=== PATIENT | female | born 1940 | race Caucasian/White ===

== ENCOUNTER 2016-05-09 15:43 | Inpatient (IN) | payer OTHER ==
--- NOTE | 2016-05-09 16:16 | CPEKG ---
Heart Rate: 95 RR Interval: 632 QRSD Interval: 90 QT Interval: 376 QTC Interval: 473 QRS [place]: -47 T Wave [place]: 39 EKG Severity - ABNORMAL ECG - EKG Impression: ATRIAL FIBRILLATION, V-RATE 74-123 EKG Impression: LEFT ANTERIOR FASCICULAR BLOCK Electronically Signed By: Blaire Kelly 09-May-2016 21:12:02
[2016-05-09] MEDS ORDERED: ONDANSETRON 4 MG/2 ML VIAL ONE (16:17)
[2016-05-09] MEDS ORDERED: ONDANSETRON 4 MG/2 ML VIAL IVP ONE (16:18)
[2016-05-09] MEDS ORDERED: FAMOTIDINE 20 MG/NACL 50 ML IV ONE (17:13)
--- NOTE | 2016-05-09 17:19 | EDPHY ---
H & P Time Seen by Provider: 05/09/16 16:14 HPI/ROS: HPI Left-sided sciatica. Generalized weakness. 75-year-old female by private vehicle with her . This patient complains of worsening left-sided sciatica which she describes as a pain originating in her left upper buttock and wrapping around to the lateral aspect of her left thigh and anterior aspect of her distal thigh. She denies any pain below the knee. She has not had any bowel or bladder incontinence. No history of malignancy. No fever. She denies any loss of sensation or weakness in her lower extremities but does state that she has difficulty ambulating because of the pain. She denies back pain. She reports that she saw her primary care physician physician recruitment and outreach assistant Ish Flores on Thursday with complaint of sciatica. She was prescribed Flexeril. She reports that since Thursday evening she has had heartburn which she describes as a burning sensation in her chest. She thinks that this is attributed to her taking the Flexeril. She also reports that since she has had nausea with several episodes of vomiting and feels that she is dehydrated. She denies diarrhea. She denies any significant abdominal pain. ROS: Constitutional: No fever, no chills. As above. Eyes: No discharge. No changes in vision. ENT: No sore throat. No nasal congestion or rhinorrhea. Respiratory: No cough. No shortness of breath. Cardiac: No chest pain, no palpitations. Gastrointestinal: As above, no diarrhea. Genitourinary: No hematuria. No dysuria or increased frequency with urination. Musculoskeletal: No back pain. No neck pain. No myalgias or arthralgias. Skin: No rashes. Neurological: No headache. No focal weakness or altered sensation. Past medical history: Macular degeneration, atrial fibrillation, appendectomy, cholecystectomy, right shoulder surgery. She is on Coumadin. Social history: She is here with her . Nonsmoker. No alcohol. Physical Exam: General Appearance: Alert, no distress. Obese habitus. This patient is responding to questions appropriately and in full sentences. This patient appears well-hydrated and well-nourished. Eyes: Pupils equal and round no pallor or injection. No lid edema, erythema or injection. Respiratory: There are no retractions, lungs are clear to auscultation anteriorly with good air movement bilaterally. Cardiovascular: Irregular, irregular rhythm. No murmur. Gastrointestinal: Abdomen is soft and nontender, no masses, bowel sounds normal. No focal tenderness at McBurney's point. No Gomes sign. Neurological: Motor sensory function is grossly intact. Cranial nerves are normal. Gait is normal. Skin: Warm and dry, no rashes. Musculoskeletal: Neck is supple and nontender. No midline thoracic, lumbar, sacral tenderness on palpation. No tenderness over the bilateral sacroiliac joints. No soft tissue changes on gross inspection of the lower back. Negative same side and cross side straight leg raise test. She is neurologically intact in all myotomes in dermatomes of the bilateral lower extremities. She is vascularly intact in the bilateral lower extremities. Extremities are symmetrical. All joints range without pain or impingement. Psychiatric: No agitation. No depression. Database: EKG: EKG time is 4:14 p.m.: EKG shows an atrial fibrillation with ventricular rate 95. Left anterior fascicular block noted. Narrow complex atrial fibrillation. No ST, T-wave changes indicative of ischemic or injury pattern. Interpreted by me. Imaging: Chest x-ray PA and lateral; the cardiac mediastinal silhouette is unremarkable. No evidence of infiltrate or pneumothorax. No acute cardiopulmonary disease process noted. Interpreted by me. Procedures: Emergency department course: IV placed. She was placed on a column precaster. EKG was performed. She states that morphine has worked for her sciatica in the past. She was given 4 mg of IV morphine. She was started on IV normal saline with 1 L to be given over the next hour for dehydration. 6:30 p.m., patient re-evaluated. Her pain is well controlled at this time. Discussed results of her lab work in her mildly elevated troponin. I will admit her for serial troponins and further evaluation and management by the hospitalist service. The patient and her are in agreement with this plan. All of her questions were answered. 6:40 p.m., spoke with Dr. Dona Harris who is covering for Dr. Mcgowan. Patient 's presentation was discussed in detail. Patient accepted for admission. Patient admitted in stable condition to the the service of Dr. Mcgowan. Differential Diagnosis: The differential diagnosis on this patient includes but is not limited to sciatica, generalized weakness, dehydration. Atrial fibrillation with rapid ventricular response, acute coronary syndrome, pancreatitis, cholecystitis, epidural abscess, spinal cord compression syndrome, AAA unlikely. This represents a partial list of diagnoses considered. These considerations are based on history, physical exam, past history, reassessment and diagnostic testing. Smoking Status: Former smoker Constitutional: Initial Vital Signs Temperature (C) 36.6 C 05/09/16 15:52 Heart Rate 110 H 05/09/16 15:52 Respiratory Rate 20 05/09/16 15:52 Blood Pressure 121/93 H 05/09/16 15:52 O2 Sat (%) 96 05/09/16 15:52 O2 Delivery Mode Nasal Cannula O2 (L/minute) 2 Allergies/Adverse Reactions: No Known Allergies Allergy (Verified 05/09/16 15:51) Home Medications: Medication Instructions Recorded Aspirin [Aspirin 81mg (*)] 81 mg PO DAILY 07/15/11 Atorvastatin Calcium [Lipitor 20 20 mg PO HS 07/15/11 mg (*)] Multivitamins [Multivitamin (*)] 1 each PO DAILY 07/15/11 Warfarin Sodium [Coumadin 1MG (*)] 5 mg PO DAILY16 07/15/11 Beta-Carotene(A) W-C & E/Min 1 tab PO DAILY 07/16/11 [Ocuvite] Ergocalciferol [Vitamin D2 (*)] 50,000 unit PO MO 07/16/11 Propylene Glycol/Peg 400 [SYSTANE 2 drops EACHEYE DAILY PRN 07/16/11 0.3-0.4% EYE DROPS] Vitamin B Complex [Vitamin B 2 tab PO DAILY 07/16/11 Complex (OTC)] Ascorbic Acid [Vitamin C 250 mg 250 mg PO DAILY 07/18/15 (*)] Calcium Citrate W/Vit D [Citracal 315 mg PO TID 07/18/15 + D] Herbals/Supplements -Info Only 1 ea PO AD 07/18/15 Pyote-3 Fatty Acids [Fish Oil 1000 1,000 mg PO BIDMEAL 07/18/15 mg (*)] Propafenone HCl 225 mg PO TID 07/18/15 Acetaminophen [Tylenol 325mg (*)] 650 mg PO Q4 PRN #0 tab 07/19/15 Muscle Relaxant 05/09/16 Medical Decision Making - Data Points Laboratory Results: Laboratory Results 05/09/16 16:17 05/09/16 16:17 05/09/16 16:17 WBC 9.73 H 10^3/uL (3.80-9.50) RBC 4.77 10^6/uL (4.18-5.33) Hgb 14.8 g/dL (12.6-16.3) Hct 42.8 % (38.0-47.0) MCV 89.7 fL (81.5-99.8) MCH 31.0 pg (27.9-34.1) MCHC 34.6 g/dL (32.4-36.7) RDW 14.4 % (11.5-15.2) Plt Count 235 10^3/uL (150-400) MPV 10.5 fL (8.7-11.7) Neut % (Auto) 86.2 H % (39.3-74.2) Lymph % (Auto) 8.2 L % (15.0-45.0) [place] % (Auto) 5.2 % (4.5-13.0) Eos % (Auto) 0.0 L % (0.6-7.6) Baso % (Auto) 0.1 L % (0.3-1.7) Nucleat RBC Rel Count 0.0 % (0.0-0.2) Absolute Neuts (auto) 8.38 H 10^3/uL (1.70-6.50) Absolute Lymphs (auto) 0.80 L 10^3/uL (1.00-3.00) Absolute Monos (auto) 0.51 10^3/uL (0.30-0.80) Absolute Eos (auto) 0.00 L 10^3/uL (0.03-0.40) Absolute Basos (auto) 0.01 L 10^3/uL (0.02-0.10) Absolute Nucleated RBC 0.00 10^3/uL (0-0.01) Immature Gran % 0.3 % (0.0-1.1) Immature Gran # 0.03 10^3/uL (0.00-0.10) PT 18.9 H SEC (12.0-15.0) INR 1.58 H (0.83-1.16) APTT 30.9 SEC (23.0-38.0) Sodium 135 mEq/L (134-144) Potassium 3.9 mEq/L (3.5-5.2) Chloride 98 mEq/L (97-110) Carbon Dioxide 23 mEq/l (22-31) Anion Gap 14 mEq/L (8-16) BUN 18 mg/dL (7-23) Creatinine 0.8 mg/dL (0.6-1.0) Estimated GFR > 60 Glucose 121 H mg/dL (70-100) Calcium 10.0 mg/dL (8.5-10.4) Total Bilirubin 1.3 mg/dL (0.1-1.4) Conjugated Bilirubin 0.4 mg/dL (0.0-0.5) Unconjugated Bilirubin 0.9 mg/dL (0.0-1.1) AST 44 IU/L (14-46) ALT 41 IU/L (9-52) Alkaline Phosphatase 97 IU/L (38-126) Troponin I 0.046 H ng/mL (0-0.034) Total Protein 7.5 g/dL (6.3-8.2) Albumin 4.5 g/dL (3.5-5.0) Lipase 77.0 IU/L (23-300) Medications Given: Discontinued Medications Famotidine/Sodium Chloride (Pepcid 20 Mg (Premix)) 50 mls @ 200 mls/hr IV EDNOW ONE Stop: 05/09/16 17:27 Last Admin: 05/09/16 17:44 Dose: 50 mls Morphine Sulfate (Morphine) 4 mg IVP EDNOW ONE Stop: 05/09/16 16:20 Last Admin: 05/09/16 16:25 Dose: 4 mg Ondansetron HCl (Zofran) 4 mg IVP EDNOW ONE Stop: 05/09/16 16:19 Last Admin: 05/09/16 16:23 Dose: 4 mg Departure - Departure Disposition: [facility] Acute Clinical Impression: Sciatica, Dehydration, Vomiting, Chest discomfort, Elevated troponin Referrals: Ish Flores PA [Primary Care Provider] - As per Instructions
[2016-05-09 17:22] LABS: % IMMATURE GRANULYOCYTES 0.3 % (0.0-1.1); ABSOLUTE IMMATURE GRANULOCYTES 0.03 10^3/uL (0.00-0.10); ADD DIFF? NO; ADD MORPH? NO; ADD SCAN? NO; ATYPICAL LYMPHOCYTE FLAG 0 (0-99); FRAGMENT RBC FLAG 0 (0-99); HEMATOCRIT 42.8 % (38.0-47.0); HEMOGLOBIN 14.8 g/dL (12.6-16.3); LEFT SHIFT FLG 0 (0-99); LIPEMIA HEMOLYSIS FLAG 90 (0-99); MEAN CELL HEMOGLOBIN CONCENTR. 34.6 g/dL (32.4-36.7); MEAN CELL VOLUME 89.7 fL (81.5-99.8); MEAN PLATELET VOLUME 10.5 fL (8.7-11.7); PLATELET CLUMPS FLAG 10 (0-99); PLATELET COUNT 235 10^3/uL (150-400); RED BLOOD CELL COUNT 4.77 10^6/uL (4.18-5.33); RED CELL DISTRIBUTION WIDTH 14.4 % (11.5-15.2)
[2016-05-09 17:28] LABS: ALANINE AMINOTRANSFERASE 41 IU/L (9-52); ALBUMIN 4.5 g/dL (3.5-5.0); ALKALINE PHOSPHATASE 97 IU/L (38-126); ANION GAP 14 mEq/L (8-16); ASPARTATE AMINOTRANSFERASE 44 IU/L (14-46); BILIRUBIN,TOTAL 1.3 mg/dL (0.1-1.4); BILIRUBIN-CONJUGATED 0.4 mg/dL (0.0-0.5); BILIRUBIN-UNCONJUGATED 0.9 mg/dL (0.0-1.1); CARBON DIOXIDE 23 mEq/l (22-31); CHLORIDE 98 mEq/L (97-110); CREATININE 0.8 mg/dL (0.6-1.0); GLOMERULAR FILTRATION RATE > 60; GLUCOSE 121 mg/dL (70-100); POTASSIUM 3.9 mEq/L (3.5-5.2); SODIUM 135 mEq/L (134-144); TOTAL PROTEIN 7.5 g/dL (6.3-8.2)
[2016-05-09 17:31] LABS: INR 1.58 (0.83-1.16); PROTIME(PATIENT) 18.9 SEC (12.0-15.0)
[2016-05-09 17:39] LABS: TROPONIN I 0.046 ng/mL (0-0.034)
[2016-05-09 17:40] LABS: APTT 30.9 SEC (23.0-38.0)
--- NOTE | 2016-05-09 19:05 | DX ---
Chest, One View Portable at 1900 hours History: Chest pain. Comparison: June 2007 Findings: Cardiac silhouette is normal in size. Hyperinflation lungs. Tortuous thoracic aorta. Bilat eral peribronchial thickening. No pneumonia, congestive heart failure, pleural effusion, or pneumotho rax. Impression: 1. COPD. 2. Chronic bronchitis. 3. Consider additional CT chest imaging.
[2016-05-09] MEDS ORDERED: PEG EACHEYE PRN (21:36)
[2016-05-09] MEDS ORDERED: PROPYLENE GLYCOL EACHEYE PRN (21:36)
[2016-05-09] MEDS ORDERED: ONDANSETRON DISINTEGRATING 4 MG TAB PO PRN (21:43)
[2016-05-09] MEDS ORDERED: BISACODYL 10 MG SUPP PR PRN (21:43)
[2016-05-09] MEDS ORDERED: MAGNESIUM HYDROXIDE 30 ML UDCUP PO PRN (21:43)
[2016-05-09] MEDS ORDERED: POLYETHYLENE GLYCOL 3350 17 GM PKT PO PRN (21:43)
[2016-05-09] MEDS ORDERED: LACTULOSE 20 GM/30 ML UDCUP PO PRN (21:43)
[2016-05-09] MEDS ORDERED: ONDANSETRON 4 MG/2 ML VIAL IVP PRN (21:43)
[2016-05-09] MEDS ORDERED: TEARS/DEXTRAN 70/HYPROMELLOSE 15 ML OPHT.BTL EACHEYE PRN (21:50)
--- NOTE | 2016-05-09 21:57 | SOAPPROG ---
SOAP Progress Note Assessment/Plan: Assessment: Plan: 05/09/16 22:04 1. Sciatica: no clear trigger, though she does report hx arthritis in her low back. Pain is somewhat better tonight. Will continue pain management with celebrex, tylenol, and prn morphine. Will have PT/OT see pt. Consider additional imaging if minimal improvement. 2. Atrial fibrillation: rate controlled, on coumadin. PT slightly subtherapeutic , likely related to missing dose recently. 3. increased troponin: indeterminant elevation of doubtful significance. Mild CAD based on last heart scan in 02/12. Agatston score 65.41. This is actually down by 30% in last year. Will f/u with troponin in morning. 4. elevated blood sugar: will check A1c 5. states she was recently started on duloxetine for depression, and that she is to be taking 30mg bid, so will dose 60mg daily. 6. DVT prophylaxis: currently on coumadin, so nothing further added. 7. Hyperlipidemia: on atorvastatin, so will continue. Subjective: 75 yo woman with hx atrial fibrillation, on coumadin, hadn't been feeling well since 05/07/15 due to L sided sciatic-type pain. Spoke to her PCP, JASON Montejo, and was advised to increase her Celebrex 100mg to bid, and begin Flexeril 5mg TID. She took two Flexeril that day and developed significant heartburn, which she attributed to the Flexeril. She also felt nauseated and vomited several times. Her symptoms persisted and she was afraid to eat. She has spent most of the last 2 days in her recliner due to pain. She is fairly comfortable sitting, but not able to stand or walk without significant pain. Today she felt worse, with continuing nausea, mild emesis, pain, and generalized weakness. She felt she was dehydrated, so was advised to come to the ED for further evaluation. In the ED, her CXR was showed COPD, but no CHF, pneumonia, effusion. EKG showed atrial fibrillation with a rate of 95. WBC was mildly elevated, but CBC otherwise normal. CMP normal except for glucose 121. Troponin indeterminate at 0.046. PT/INR 18.9/1.58. She was hydrated and given morphine 4mg IVP, and admitted for further evaluation due to ongoing pain and difficulty with ambulation. Currently, she is feeling much better, though continues to have some pain if not sitting. Objective: Vital Signs Temp Pulse Resp BP Pulse Ox 36.6 C 104 H 18 114/75 94 05/09/16 21:17 05/09/16 21:17 05/09/16 21:17 05/09/16 21:17 05/09/16 21:17 PT 18.9 SEC (12.0-15.0) H 05/09/16 16:17 INR 1.58 (0.83-1.16) H 05/09/16 16:17 General: WDWN woman, obese, NAD, pleasant, alert HEENT: PERRL, EOMI Neck: supple, no masses, adenopathy. No thyromegaly, tenderness. No carotid bruits. Lungs: clear bilaterally Cardiovascular: irregularly, irregular, rate controlled. Heart sounds distant. No murmur noted. Abdomen: normal bowel sounds, soft, NT, non-distended. No organomegaly, masses noted. Back: NT over spine Neurologic: moving all extremities. BLE strength, muscle bulk, tone normal. Sensation normal to LT. Ankle jerks 1+ bilaterally. Psychiatric: alert, pleasant, conversant. Normal cognition, affect. ICD10 Worksheet Patient Problems: Problems Problem Status Diagnosed Chest discomfort Acute Dehydration Acute Elevated troponin Acute Sciatica Acute Vomiting Acute Osteoarthritis Acute
[2016-05-09] MEDS ORDERED: Herbals/Supplements -Info Only PO SCH (22:00)
[2016-05-09] MEDS ORDERED: WARFARIN SODIUM 1 MG TAB PO SCH (22:00)
[2016-05-09] MEDS ORDERED: PROPAFENONE HCL 225 MG PO SCH (22:00)
[2016-05-09] MEDS: PROPAFENONE HCL 150 MG TAB PO SCH (22:33)
[2016-05-09] MEDS: CALCIUM CARB W/VIT D 500 MG TAB PO SCH (22:34)
[2016-05-09] MEDS: ACETAMINOPHEN 325 MG TAB PO SCH (22:34)
--- NOTE | 2016-05-09 23:20 | GHP ---
[f rep st] HISTORY AND PHYSICAL DATE OF ADMISSION: 05/09/2016 HISTORY OF PRESENT ILLNESS: The patient is a 75-year-old woman with a history of atrial fibrillation currently on Coumadin who has not been feeling well since Saturday, May 07, 2016, due to left-sided sciatic type pain. On that day, she spoke to her PCP, JASON Montejo, and was advised to increase her Celebrex 100 mg to b.i.d. and to begin Flexeril 5 mg t.i.d. She took 2 Flexeril that day and developed heartburn which she attributed to the Flexeril. She also felt nauseated and vomited several times. Her symptoms persisted, and she was afraid to eat. She has spent most of the last 2 days in her recliner due to pain. She is fairly comfortable sitting but is not able to stand or walk without significant pain. Today she felt worse with continuing nausea, mild emesis, pain, and generalized weakness. She felt she was dehydrated so was advised to come to the ED for further evaluation. In the ED, her chest x-ray showed COPD but not significant CHF, pneumonia or effusion. EKG showed atrial fibrillation with a rate of 95. White blood cell count was mildly elevated, but CBC was otherwise normal. CMP was normal except for a glucose of 121. Troponin was indeterminate at 0.046. PT/INR 18.9/1.58. She was hydrated and given morphine 4 mg IV push and admitted for further evaluation due to ongoing pain and difficulty with ambulation. Currently, she is feeling much better though she does continue to have some pain if she is not sitting. PAST MEDICAL HISTORY: Atrial fibrillation, GERD, hematuria, macular degeneration, meralgia paresthetica, pneumonia, primary hyperparathyroidism, sciatica, tinnitus, vertigo, thyroid nodule, hyperlipidemia, hypertension, hypoxia. MEDICATIONS: Vitamin D 50,000 international units once weekly, duloxetine 30 mg b.i.d., atorvastatin 20 mg daily, Coumadin 5 mg daily, Rythmol 225 mg t.i.d. , celecoxib 100 mg daily, Omeprazole 20 mg b.i.d. p.r.n., Flonase p.r.n., aspirin 81 mg daily, calcium 600 mg t.i.d., omega 3 fatty acids 1200 mg 4 daily. ALLERGIES: Ceftin, tetanus. PAST SURGICAL HISTORY: Appendectomy 2011, fistula, cholecystectomy 1996. FAMILY HISTORY: Her father at 88 from lung cancer and asbestosis. Her mother at 89. She had heart failure, diabetes, coronary artery disease, and thyroid disease. SOCIAL HISTORY: She is . She is a nondrinker. She has 2 children. She is a former smoker having quit in 1986. REVIEW OF SYSTEMS: CONSTITUTIONAL: No fever. She reports having had chills today and feeling generalized weakness. HEENT: No eye symptoms. No rhinitis. No sore throat. RESPIRATORY: No cough or shortness of breath. CARDIOVASCULAR: No chest pain or pressure. No palpitations. Heart rate somewhat variable. GI: Nausea, vomiting, and reflux as noted above. No lower abdominal pain. No diarrhea or constipation. : No hematuria, dysuria, no increased urinary frequency. MUSCULOSKELETAL: Sciatica, as noted. Decreased range of motion in right shoulder. NEUROLOGIC: No focal weakness. She reports slight decreased sensation to light touch over her left knee. No incontinence. No headache. PHYSICAL EXAMINATION: VITAL SIGNS: Temperature 36.6, blood pressure 114/75, heart rate 104, respiratory rate 18, O2 saturation 94% on room air. GENERAL: She is a well-developed, well-nourished woman, obese, pleasant, alert. In no acute distress. HEENT: Pupils are equal, round, and reactive to light. Extraocular movements are intact. NECK: Supple without masses or adenopathy. No thyromegaly or tenderness. No carotid bruits. LUNGS: Clear bilaterally. CARDIOVASCULAR: Irregularly irregular rhythm. Rate is controlled. Heart sound are distant. No murmur noted. ABDOMEN: Obese with normal bowel sounds, soft and nontender, nondistended. No organomegaly or masses noted. BACK: Nontender over spine. NEUROLOGIC: Moving all extremities, bilateral lower extremity strength, muscle, bulk and tone are normal. Sensation is normal to light touch in both lower extremities. Ankle jerks 1+ bilaterally. PSYCHIATRIC : She is alert, pleasant, conversant, normal cognition and affect. ASSESSMENT AND PLAN: 1. Sciatica. No clear trigger though she does report a history of arthritis in her low back in the past, and she has had right-sided sciatica in the past. Her pain is somewhat better tonight. We will continue with pain management with Celebrex, Tylenol and p.r.n. morphine. We will have PT and OT see patient and consider additional imaging if minimal improvement. 2. Atrial fibrillation. Rate is controlled. She is on Coumadin. PT is slightly subtherapeutic, likely related to missing a dose recently. 3. Increased troponin, indeterminate elevation of doubtful significance. Mild coronary artery disease based on last heart scan in 01/2016. Agatston score at that time 65.41. This is actually down by 30% in the last year. We will follow up with troponin in the morning. 4. Elevated blood sugar. We will check hemoglobin A1c. 5. States that she was recently started on Duloxetine for depression that she is taking 30 mg b.i.d., so we will dose 60 mg daily. 6. Deep vein thrombosis prophylaxis: Currently on Coumadin, so nothing further added. 7. Hyperlipidemia on atorvastatin, so we will continue. /[id number]/MODL MTDD
[2016-05-09] MEDS: WARFARIN SODIUM 5 MG TAB PO SCH (23:36)
[2016-05-10 05:28] LABS: % IMMATURE GRANULYOCYTES 0.4 % (0.0-1.1); ABSOLUTE IMMATURE GRANULOCYTES 0.03 10^3/uL (0.00-0.10); ADD DIFF? NO; ADD MORPH? NO; ADD SCAN? NO; ATYPICAL LYMPHOCYTE FLAG 0 (0-99); FRAGMENT RBC FLAG 0 (0-99); HEMATOCRIT 38.2 % (38.0-47.0); HEMOGLOBIN 12.7 g/dL (12.6-16.3); LEFT SHIFT FLG 0 (0-99); LIPEMIA HEMOLYSIS FLAG 80 (0-99); MEAN CELL HEMOGLOBIN 31.3 pg (27.9-34.1); MEAN CELL HEMOGLOBIN CONCENTR. 33.2 g/dL (32.4-36.7); MEAN CELL VOLUME 94.1 fL (81.5-99.8); MEAN PLATELET VOLUME 10.5 fL (8.7-11.7); PLATELET CLUMPS FLAG 10 (0-99); PLATELET COUNT 171 10^3/uL (150-400); RED BLOOD CELL COUNT 4.06 10^6/uL (4.18-5.33); RED CELL DISTRIBUTION WIDTH 14.6 % (11.5-15.2)
[2016-05-10 05:45] LABS: ANION GAP 11 mEq/L (8-16); CARBON DIOXIDE 26 mEq/l (22-31); CHLORIDE 101 mEq/L (97-110); GLOMERULAR FILTRATION RATE 54; GLUCOSE 88 mg/dL (70-100); POTASSIUM 3.2 mEq/L (3.5-5.2); SODIUM 138 mEq/L (134-144)
[2016-05-10 05:46] LABS: INR 1.74 (0.83-1.16); PROTIME(PATIENT) 20.4 SEC (12.0-15.0)
[2016-05-10] MEDS: ACETAMINOPHEN 325 MG TAB PO SCH ×3 (06:02→17:48)
[2016-05-10] MEDS: PRESERVISION AREDS2 FORMULA EYE VIT 1 EACH PO SCH (08:10)
[2016-05-10] MEDS: ASCORBIC ACID 250 MG TAB PO SCH (08:10)
[2016-05-10] MEDS: OMEGA-3 FATTY ACIDS 1,000 MG CAP PO SCH ×2 (08:10→17:47)
[2016-05-10] MEDS: PROPAFENONE HCL 150 MG TAB PO SCH ×3 (08:11→17:47)
[2016-05-10] MEDS: SENNOSIDES/DOCUSATE SODIUM TAB PO SCH ×2 (08:11→20:00)
[2016-05-10] MEDS: CALCIUM CARB W/VIT D 500 MG TAB PO SCH ×3 (08:11→21:41)
[2016-05-10] MEDS: VITAMIN B COMPLEX 1 EA CAP/TAB PO SCH ×2 (08:12→20:00)
[2016-05-10] MEDS: MULTIVITAMINS 1 EACH TAB PO SCH (08:12)
[2016-05-10] MEDS: ASPIRIN 81 MG CHEWABLE TAB PO SCH (08:12)
[2016-05-10] MEDS: DULoxetine 60 MG CAP PO SCH (08:12)
[2016-05-10] MEDS ORDERED: NON-FORMULARY NEW DRUG (Beta-Carotene(A) W-C & E/Min [Ocuvite] 1 TAB) PO SCH (09:00)
[2016-05-10] MEDS ORDERED: PROTOCOL POTASSIUM 1 DOSE MISC PRN (11:49)
[2016-05-10] MEDS ORDERED: POTASSIUM CL 10 MEQ TAB PO ONE (12:04)
--- NOTE | 2016-05-10 14:41 | SOAPPROG ---
SOAP Progress Note Assessment/Plan: Assessment: Plan: 05/09/16 22:04 1. Sciatica: no clear trigger, though she does report hx arthritis in her low back. Pain is somewhat better tonight. Will continue pain management with celebrex, tylenol, and prn morphine. Will have PT/OT see pt. Consider additional imaging if minimal improvement. 2. Atrial fibrillation: rate controlled, on coumadin. PT slightly subtherapeutic , likely related to missing dose recently. 3. increased troponin: indeterminant elevation of doubtful significance. Mild CAD based on last heart scan in 02/12. Agatston score 65.41. This is actually down by 30% in last year. Will f/u with troponin in morning. 4. elevated blood sugar: will check A1c 5. states she was recently started on duloxetine for depression, and that she is to be taking 30mg bid, so will dose 60mg daily. 6. DVT prophylaxis: currently on coumadin, so nothing further added. 7. Hyperlipidemia: on atorvastatin, so will continue. 05/10/16 14:43 1. Sciatica: remains symptomatic. Does have improvement in sx with narcotic pain Rx. Would like to go home. Will check LS spine xray, and then anticipate d/ c later today. Rx for oxycodone 5mg 1-2 PO q 6hrs prn #30 placed in chart. Will order PT with Scarlet Ernst on Thursday. 2. Atrial fibrillation: stable. INR better today. 3. elevated blood sugar: A1c pending 4. increased troponin: indeterminant elevation, better than yesterday. 5. hypokalemia: replacement dose given today. Will f/u as outpatient. Not on Lasix or other diuretic. 05/10/16 14:49 05/10/16 14:50 05/10/16 14:51 05/10/16 14:52 Subjective: Feeling better in terms of her GI sx, but continues to have sciatic pain. PT, OT input appreciated. Has been using prn morphine for pain control. Eating a little better without nausea, vomiting. Would actually like to go home. Both PT , OT have recommended f/u with homecare as an outpatient. Pt has seen Scarlet Ernst in the past, and would like to see her again. Doesn't do that much at home, and feels she could manage ok with some extra pain medication and PT f/u. Note that second troponin was mildly elevated, though less so than previously. K + also low this morning, so given replacement. Objective: Vital Signs Temp Pulse Resp BP Pulse Ox 36.4 C 87 20 149/77 H 90 L 05/10/16 11:54 05/10/16 11:54 05/10/16 11:54 05/10/16 11:54 05/10/16 11:54 Laboratory Results 05/10/16 03:38 05/10/16 03:38 05/09/16 05/10/16 05/11/16 05:59 05:59 05:59 Intake Total 240 350 Balance 240 350 PT 20.4 SEC (12.0-15.0) H 05/10/16 03:38 INR 1.74 (0.83-1.16) H 05/10/16 03:38 General: well-appearing, NAD, awake, alert Neck: no masses, adenopathy Lungs: clear bilaterally Cardiovascular: irregularly irregular Abdomen: +bowel sounds, soft, NT Extremities: no edema - Pending Discharge Pending Discharge Within 24 Hours: Yes Pending Discharge Date: 05/11/16 Pending Discharge Time: 11:00 ICD10 Worksheet Patient Problems: Problems Problem Status Diagnosed Chest discomfort Acute Dehydration Acute Elevated troponin Acute Sciatica Acute Vomiting Acute Osteoarthritis Acute
[2016-05-10] MEDS ORDERED: WARFARIN SODIUM 5 MG TAB PO SCH (16:00)
[2016-05-10] MEDS: WARFARIN SODIUM 5 MG TAB PO SCH (16:16)
--- NOTE | 2016-05-10 16:33 | DX ---
Lumbar Spine, 2 standing views History: Left-sided sciatica Comparison: December 03, 2007 Findings: Alignment on the AP exam is normal. There is chronic degenerative change of the right L5 po sterior elements. On the lateral view there is new moderate narrowing of the L2-L3 disk space, associ ated with new posterior marginal sclerosis. An osteophyte of the anterior superior corner of L2 has e nlarged since 2007. There is new mild narrowing of the L3-L4 disk space. There is a new grade 1 spond ylolisthesis at L4-L5 where the disk space is newly mildly narrowed. There is stable chronic degenera tive narrowing of the L5-S1 disk space where there is a stable spondylolisthesis present that may be anteriorly fused. There has been an interval, new minimal superior endplate L2 compression deformity, that is likely not acute. There is chronic atherosclerotic calcification of the normal sized abdominal aorta. Right upper quadr ant surgical clips are consistent with previous cholecystectomy. Impression: Progressive multilevel degenerative disk changes in the lumbar spine since 2007.
[2016-05-10] MEDS ORDERED: ATORVASTATIN CALCIUM 20 MG TAB PO SCH (18:00)
[2016-05-10 19:09] LABS: POTASSIUM 3.8 mEq/L (3.5-5.2)
[2016-05-10 23:09] VITALS: RESP 16
[2016-05-11] MEDS: ACETAMINOPHEN 325 MG TAB PO SCH ×2 (01:07→06:31)
[2016-05-11] MEDS ORDERED: POTASSIUM CL 10 MEQ TAB PO ONE (02:06)
[2016-05-11 05:18] LABS: POTASSIUM 3.9 mEq/L (3.5-5.2)
[2016-05-11] MEDS: OMEGA-3 FATTY ACIDS 1,000 MG CAP PO SCH (08:31)
[2016-05-11] MEDS: DULoxetine 60 MG CAP PO SCH (08:32)
[2016-05-11] MEDS: ASPIRIN 81 MG CHEWABLE TAB PO SCH (08:32)
[2016-05-11] MEDS: ASCORBIC ACID 250 MG TAB PO SCH (08:32)
[2016-05-11] MEDS: PRESERVISION AREDS2 FORMULA EYE VIT 1 EACH PO SCH (08:32)
[2016-05-11] MEDS: PROPAFENONE HCL 150 MG TAB PO SCH (08:32)
[2016-05-11] MEDS: CALCIUM CARB W/VIT D 500 MG TAB PO SCH (08:32)
[2016-05-11] MEDS: SENNOSIDES/DOCUSATE SODIUM TAB PO SCH (08:32)
[2016-05-11] MEDS: VITAMIN B COMPLEX 1 EA CAP/TAB PO SCH (08:32)
[2016-05-11] MEDS: MULTIVITAMINS 1 EACH TAB PO SCH (08:33)
--- NOTE | 2016-05-11 11:50 | SOAPPROG ---
SORIKI Progress Note Assessment/Plan: Assessment: Sciatica: continues to be symptomatic, but is improving some with PT. Degenerative change on xray likely contributing, though no clear spinal stenosis. Will d/c today, and she will f/u with outpt PT. Atrial fibrillation: rate remains controlled. She will be due for PT/INR in the office on Thursday05/16/16 Elevated blood sugar: A1c still pending Hypokalemia: K+ improved with replacement Plan: 05/09/16 22:04 1. Sciatica: no clear trigger, though she does report hx arthritis in her low back. Pain is somewhat better tonight. Will continue pain management with celebrex, tylenol, and prn morphine. Will have PT/OT see pt. Consider additional imaging if minimal improvement. 2. Atrial fibrillation: rate controlled, on coumadin. PT slightly subtherapeutic , likely related to missing dose recently. 3. increased troponin: indeterminant elevation of doubtful significance. Mild CAD based on last heart scan in 02/12. Agatston score 65.41. This is actually down by 30% in last year. Will f/u with troponin in morning. 4. elevated blood sugar: will check A1c 5. states she was recently started on duloxetine for depression, and that she is to be taking 30mg bid, so will dose 60mg daily. 6. DVT prophylaxis: currently on coumadin, so nothing further added. 7. Hyperlipidemia: on atorvastatin, so will continue. 05/10/16 14:43 1. Sciatica: remains symptomatic. Does have improvement in sx with narcotic pain Rx. Would like to go home. Will check LS spine xray, and then anticipate d/ c later today. Rx for oxycodone 5mg 1-2 PO q 6hrs prn #30 placed in chart. Will order PT with Scarlet Ernst on Thursday. 2. Atrial fibrillation: stable. INR better today. 3. elevated blood sugar: A1c pending 4. increased troponin: indeterminant elevation, better than yesterday. 5. hypokalemia: replacement dose given today. Will f/u as outpatient. Not on Lasix or other diuretic. 05/10/16 14:49 05/10/16 14:50 05/10/16 14:51 05/10/16 14:52 05/11/16 11:50 05/11/16 11:52 05/11/16 11:55 Subjective: Doing a little better. Was more active with PT today. Didn't go home last night as it got late and she was sleepy after getting morphine. felt uncomfortable, safety a concern. Both feel good about going today with outpatient PT f/u. LS spine xray with progressive degenerative change and probably old L2 compression deformity. Objective: Vital Signs Temp Pulse Resp BP Pulse Ox 36.5 C 80 16 137/80 H 92 05/11/16 07:31 05/11/16 07:31 05/11/16 07:31 05/11/16 07:31 05/11/16 07:31 Laboratory Results 05/10/16 03:38 05/11/16 03:48 05/10/16 05/11/16 05/12/16 05:59 05:59 05:59 Intake Total 240 1480 Balance 240 1480 PT 20.4 SEC (12.0-15.0) H 05/10/16 03:38 INR 1.74 (0.83-1.16) H 05/10/16 03:38 General: lying in bed, comfortable Lungs: clear bilaterally Cardiovascular: irrregularly irregular, no murmur Extremities: no edema ICD10 Worksheet Patient Problems: Problems Problem Status Diagnosed Chest discomfort Acute Dehydration Acute Elevated troponin Acute Sciatica Acute Vomiting Acute Osteoarthritis Acute
[2016-05-11 12:37] VITALS: BP 138/93; PULSE 81; TEMP 98.1; O2SAT 99
--- NOTE | 2016-05-11 13:55 | GDS ---
[f rep st] DISCHARGE SUMMARY DISCHARGE DIAGNOSES: 1. Left-sided sciatica. 2. Elevated troponin. 3. Abnormal blood sugar. 4. Hypokalemia. 5. Atrial fibrillation. 6. Epigastric pain. HOSPITAL COURSE: The patient is a 75-year-old woman with a history of atrial fibrillation, on Coumadin, who was admitted after coming to the emergency department with complaints of epigastric pain, nausea, vomiting, and left lower extremity sciatica type pain. She felt that her GI symptoms were related to taking Flexeril for her leg pain. Her GI symptoms resolved with hydration and did not recur during her stay. Her pain was treated with Celebrex, Tylenol, and morphine, which did help. An x-ray of her lumbosacral spine showed progressive degenerative changes with likely an old compression deformity at L2. There was no clear spinal stenosis on x-ray. She was seen by PT and OT. At this point, she still has pain, but is able to ambulate, and feels safe to go home with outpatient physical therapy. A followup prescription was given for this. Additionally, she was noted to have an elevated troponin. This was in the indeterminant range, and did decrease over the course of her stay. It was not felt to be clinically significant. She was found to be hypokalemic, and so was supplemented, and had normal potassium upon discharge. She was also noted to be hyperglycemic, so A1c was drawn and is still pending at the time of discharge. She will be due for a followup PT/INR on 05/16/16 in the office for her atrial fibrillation. DISCHARGE MEDICATIONS: Oxycodone 1-2 p.o. q.6 hours p.r.n., Celebrex 100 mg b.i.d., Warfarin 5 mg daily, propafenone 225 mg t.i.d., vitamin D 50,000 international units weekly, duloxetine 60 mg daily, atorvastatin 20 mg daily. FOLLOWUP: She will follow up next week with MATT Montejo, and she will also schedule followup with Scarlet Ernst for physical therapy. /[id number]/MODL MTDD
[2016-05-12 03:09] LABS: HEMOGLOBIN A1C 5.8 % (4.0-6.0)
[2016-06-02] MEDS ORDERED: ERGOCALCIFEROL 50,000 I.UNIT CAP PO SCH (09:00)
== END 2016-05-11 12:43 | disposition home or self-care (01) | DRG 552 ==
LOC: F2W 20:18 → OBSVTOIN 21:43
PROVIDERS: ADMIT Internal Medicine; ATTEND Internal Medicine
DX: M54.42 Lumbago with sciatica, left side (principal); I48.91 Unspecified atrial fibrillation; E87.6 Hypokalemia; R10.13 Epigastric pain; J44.9 Chronic obstructive pulmonary disease, unspecified; R73.09 Other abnormal glucose; I10 Essential (primary) hypertension; K21.9 Gastro-esophageal reflux disease without esophagitis; E78.5 Hyperlipidemia, unspecified; Z79.01 Long term (current) use of anticoagulants
CPT/HCPCS: 96365; 97116-GP; 97161-GP; 97165-GO; G8978-GP-CJ; G8979-GP-CI; G8987-GO-CJ; G8988-GO-CI; J2405

== ENCOUNTER 2016-05-18 07:50 | Inpatient (IN) | payer OTHER ==
[2016-05-18] MEDS ORDERED: NS 1,000 ML IV ONE (08:08)
--- NOTE | 2016-05-18 08:08 | EDPHY ---
H & P Time Seen by Provider: 05/18/16 08:00 HPI/ROS: Chief complaint. Weakness HPI. 75-year-old female here by EMS for generalized weakness and left-sided sciatica. She was admitted for same including elevated troponin on May 09. She and her report progressive weakness the past few days to the point of difficulty with ambulation. She is being treated with sciatica and currently on a steroid taper. She was discharged home 1 week ago. She has nausea and decreased p.o. intake. She does have some chest discomfort which she feels is like acid reflux. She has also had exertional shortness of breath the last few days. No cough or fever. No abdominal pain but it just feels unsettled. ROS Constitutional. Generalized weakness Eyes. no problems with vision ENT. no sore throat, no nasal drainage Cardiovascular. Chest discomfort Respiratory. Exertional dyspnea Abdominal. Queasy abdomen with nausea but no vomiting or diarrhea . no problems urinating MS. no calf pain/swelling, no neck/back pain, no joint pain Skin. no rash Lymph. no swollen glands Neuro. Difficulty ambulating with her walker secondary to generalized weakness Past Medical/Surgical History: Past medical history includes macular degeneration, atrial fibrillation on Coumadin, appendectomy, cholecystectomy, sciatica Social History: , lives at home with , nonsmoker, no alcohol Smoking Status: Former smoker Physical Exam: General Appearance: Alert well-developed female mild distress vital signs show patient be afebrile, heart rate 102, blood pressure 197/117 Eyes: Pupils equal and round no pallor or injection. ENT, Mouth: Mucous membranes are moist. Respiratory: There are no retractions, lungs are clear to auscultation. Cardiovascular: Regular rate and rhythm. Gastrointestinal: Mild epigastric tenderness. No masses. Normal bowel sounds Neurological: Awake and alert, sensory and motor exams grossly normal. Skin: Warm and dry, no rashes. Musculoskeletal: Neck is supple nontender. Extremities symmetrical, full range of motion. Psychiatric: Patient is oriented X 3, there is no agitation. Constitutional: Initial Vital Signs Temperature (C) 36.6 C 05/18/16 08:03 Heart Rate 102 H 05/18/16 08:03 Respiratory Rate 18 05/18/16 08:03 Blood Pressure 197/117 H 05/18/16 08:03 O2 Sat (%) 94 05/18/16 08:03 O2 Delivery Mode Room Air O2 (L/minute) 2 Allergies/Adverse Reactions: No Known Allergies Allergy (Verified 05/18/16 08:03) Home Medications: Medication Instructions Recorded Aspirin [Aspirin 81mg (*)] 81 mg PO DAILY 07/15/11 Atorvastatin Calcium [Lipitor 20 20 mg PO DAILY@18 07/15/11 mg (*)] Multivitamins [Multivitamin (*)] 1 tab PO DAILY 07/15/11 Warfarin Sodium [Coumadin 1MG (*)] 5 mg PO DAILY16 07/15/11 Ergocalciferol [Vitamin D2 (*)] 50,000 unit PO MO 07/16/11 Propylene Glycol/Peg 400 [SYSTANE 2 drops EACHEYE DAILY PRN 07/16/11 0.3-0.4% EYE DROPS] Vitamin B Complex [Vitamin B 1 tab PO BID 07/16/11 Complex (OTC)] Ascorbic Acid [Vitamin C 250 mg 250 mg PO DAILY 07/18/15 (*)] Herbals/Supplements -Info Only 1 ea PO AD 07/18/15 [place]-3 Fatty Acids [Fish Oil 1000 2,000 mg PO BIDMEAL 07/18/15 mg (*)] Propafenone HCl 225 mg PO TID 07/18/15 Acetaminophen [Tylenol 325mg (*)] 650 mg PO Q6 05/09/16 Calcium Carb W/Vit D [Calcium Carb 500 mg PO TID 05/09/16 W/Vit D 500/200 (*)] C/E/Zn/Cu/OM3/DHA/EPA/LUT/ZEAX 1 each PO DAILY #0 cap 05/11/16 [Preservision Areds 2 Softgel] DULoxetine [Cymbalta 60 MG (*)] 60 mg PO DAILY #0 cap 05/11/16 celeCOXIB [CeleBREX] 100 mg PO BID #0 cap 05/11/16 Medical Decision Making - Diagnostics EKG Interpretation: EKG interpreted shows atrial fibrillation with left axis deviation and QRS shows a left anterior fascicular block. [address] elevation or depression. Rate is 95 Procedures: IV normal saline with 1 L being given. Morphine for pain. Zofran for nausea ED Course/Re-evaluation: Re-evaluation at 9:10 a.m.. Patient is stable. She is feeling a little bit better after pain medication and nausea med. Patient and I and her reviewed her laboratory, EKG, results. We discussed treatment plan including recommendation for admission. They expressed understanding and agreement I consulted and discussed the case with Dr. Patton who agrees to the admission. She will see the patient in the emergency department Differential Diagnosis: I considered acute coronary syndrome, electrolyte abnormality, dehydration. - Data Points Laboratory Results: Laboratory Results 05/18/16 07:51 05/18/16 07:51 05/18/16 05/18/16 05/18/16 07:51 07:51 07:51 WBC 8.61 10^3/uL 10^3/uL (3.80-9.50) RBC 4.45 10^6/uL 10^6/uL (4.18-5.33) Hgb 14.3 g/dL g/dL (12.6-16.3) Hct 41.6 % % (38.0-47.0) MCV 93.5 fL fL (81.5-99.8) MCH 32.1 pg pg (27.9-34.1) MCHC 34.4 g/dL g/dL (32.4-36.7) RDW 14.5 % % (11.5-15.2) Plt Count 247 10^3/uL 10^3/uL (150-400) MPV 10.5 fL fL (8.7-11.7) Neut % (Auto) 76.8 % H % (39.3-74.2) Lymph % (Auto) 14.2 % L % (15.0-45.0) [place] % (Auto) 8.2 % % (4.5-13.0) Eos % (Auto) 0.1 % L % (0.6-7.6) Baso % (Auto) 0.2 % L % (0.3-1.7) Nucleat RBC Rel Count 0.0 % % (0.0-0.2) Absolute Neuts (auto) 6.61 10^3/uL H 10^3/uL (1.70-6.50) Absolute Lymphs (auto) 1.22 10^3/uL 10^3/uL (1.00-3.00) Absolute Monos (auto) 0.71 10^3/uL 10^3/uL (0.30-0.80) Absolute Eos (auto) 0.01 10^3/uL L 10^3/uL (0.03-0.40) Absolute Basos (auto) 0.02 10^3/uL 10^3/uL (0.02-0.10) Absolute Nucleated RBC 0.00 10^3/uL 10^3/uL (0-0.01) Immature Gran % 0.5 % % (0.0-1.1) Immature Gran # 0.04 10^3/uL 10^3/uL (0.00-0.10) PT 19.1 SEC H SEC (12.0-15.0) INR 1.60 H (0.83-1.16) APTT 27.1 SEC SEC (23.0-38.0) Sodium 132 mEq/L L mEq/L (134-144) Potassium 4.1 mEq/L mEq/L (3.5-5.2) Chloride 94 mEq/L L mEq/L (97-110) Carbon Dioxide 27 mEq/l mEq/l (22-31) Anion Gap 11 mEq/L mEq/L (8-16) BUN 16 mg/dL mg/dL (7-23) Creatinine 0.9 mg/dL mg/dL (0.6-1.0) Estimated GFR > 60 Glucose 109 mg/dL H mg/dL (70-100) Calcium 10.0 mg/dL mg/dL (8.5-10.4) Total Bilirubin 1.0 mg/dL mg/dL (0.1-1.4) Conjugated Bilirubin 0.4 mg/dL mg/dL (0.0-0.5) Unconjugated Bilirubin 0.6 mg/dL mg/dL (0.0-1.1) AST 35 IU/L IU/L (14-46) ALT 46 IU/L IU/L (9-52) Alkaline Phosphatase 84 IU/L IU/L (38-126) Troponin I 0.027 ng/mL ng/mL (0-0.034) Total Protein 7.2 g/dL g/dL (6.3-8.2) Albumin 4.4 g/dL g/dL (3.5-5.0) Lipase 89.0 IU/L IU/L (23-300) Medications Given: Discontinued Medications Sodium Chloride (Ns) 1,000 mls @ 0 mls/hr IV ONCE ONE PRN Reason: Wide Open Stop: 05/18/16 08:09 Last Admin: 05/18/16 08:20 Dose: 1,000 mls Morphine Sulfate (Morphine) 4 mg IVP EDNOW ONE Stop: 05/18/16 08:21 Last Admin: 05/18/16 08:29 Dose: 4 mg Ondansetron HCl (Zofran) 4 mg IVP EDNOW ONE Stop: 05/18/16 08:21 Last Admin: 05/18/16 08:29 Dose: 4 mg Departure - Departure Disposition: [facility] Inpatient Acute Clinical Impression: Weakness Condition: Fair Referrals: Unknown,Unknown [Unknown] - As per Instructions
[2016-05-18 08:16] LABS: % IMMATURE GRANULYOCYTES 0.5 % (0.0-1.1); ABSOLUTE IMMATURE GRANULOCYTES 0.04 10^3/uL (0.00-0.10); ADD DIFF? NO; ADD MORPH? NO; ADD SCAN? NO; ATYPICAL LYMPHOCYTE FLAG 10 (0-99); FRAGMENT RBC FLAG 0 (0-99); HEMATOCRIT 41.6 % (38.0-47.0); HEMOGLOBIN 14.3 g/dL (12.6-16.3); LEFT SHIFT FLG 0 (0-99); LIPEMIA HEMOLYSIS FLAG 90 (0-99); MEAN CELL HEMOGLOBIN 32.1 pg (27.9-34.1); MEAN CELL HEMOGLOBIN CONCENTR. 34.4 g/dL (32.4-36.7); MEAN CELL VOLUME 93.5 fL (81.5-99.8); MEAN PLATELET VOLUME 10.5 fL (8.7-11.7); PLATELET CLUMPS FLAG 0 (0-99); PLATELET COUNT 247 10^3/uL (150-400); RED BLOOD CELL COUNT 4.45 10^6/uL (4.18-5.33); RED CELL DISTRIBUTION WIDTH 14.5 % (11.5-15.2)
--- NOTE | 2016-05-18 08:18 | CPEKG ---
Heart Rate: 95 RR Interval: 632 QRSD Interval: 88 QT Interval: 388 QTC Interval: 488 QRS [place]: -51 T Wave [place]: 57 EKG Severity - ABNORMAL ECG - EKG Impression: ATRIAL FIBRILLATION EKG Impression: VENTRICULAR PREMATURE COMPLEX EKG Impression: LEFT ANTERIOR FASCICULAR BLOCK EKG Impression: BORDERLINE PROLONGED QT INTERVAL Electronically Signed By: Magdiel Stanford 18-May-2016 15:42:17
[2016-05-18] MEDS ORDERED: ONDANSETRON 4 MG/2 ML VIAL IVP ONE (08:20)
[2016-05-18 08:34] LABS: INR 1.6 (0.83-1.16); PROTIME(PATIENT) 19.1 SEC (12.0-15.0)
[2016-05-18 08:35] LABS: APTT 27.1 SEC (23.0-38.0)
[2016-05-18 08:39] LABS: ALANINE AMINOTRANSFERASE 46 IU/L (9-52); ALBUMIN 4.4 g/dL (3.5-5.0); ALKALINE PHOSPHATASE 84 IU/L (38-126); ANION GAP 11 mEq/L (8-16); ASPARTATE AMINOTRANSFERASE 35 IU/L (14-46); BILIRUBIN-CONJUGATED 0.4 mg/dL (0.0-0.5); BILIRUBIN-UNCONJUGATED 0.6 mg/dL (0.0-1.1); CARBON DIOXIDE 27 mEq/l (22-31); CHLORIDE 94 mEq/L (97-110); CREATININE 0.9 mg/dL (0.6-1.0); GLOMERULAR FILTRATION RATE > 60; GLUCOSE 109 mg/dL (70-100); POTASSIUM 4.1 mEq/L (3.5-5.2); SODIUM 132 mEq/L (134-144); TOTAL PROTEIN 7.2 g/dL (6.3-8.2)
[2016-05-18 08:50] LABS: TROPONIN I 0.027 ng/mL (0-0.034)
[2016-05-18] MEDS ORDERED: LABETALOL HCL 5 MG/ML 20 ML MDV IVP ONE (09:36)
[2016-05-18] MEDS ORDERED: BISACODYL 10 MG SUPP PR PRN (10:17)
[2016-05-18] MEDS ORDERED: ONDANSETRON DISINTEGRATING 4 MG TAB PO PRN (10:17)
[2016-05-18] MEDS ORDERED: ONDANSETRON 4 MG/2 ML VIAL IVP PRN (10:17)
[2016-05-18] MEDS ORDERED: MAGNESIUM HYDROXIDE 30 ML UDCUP PO PRN (10:17)
[2016-05-18] MEDS ORDERED: LACTULOSE 20 GM/30 ML UDCUP PO PRN (10:17)
[2016-05-18] MEDS ORDERED: POLYETHYLENE GLYCOL 3350 17 GM PKT PO PRN (10:17)
--- NOTE | 2016-05-18 10:30 | SOAPPROG ---
SORIKI Progress Note Assessment/Plan: Assessment: 75 yo abi lady accompanied by spouse and dtr and son-in-law for increased weakness and pain from L sided sciatica. Was in the hospital for this a week ago and was treated w/ pain mngt, pt/ot was better and d/c home, but unfortunately as the week progressed everything more progressively difficult, spouse having a hard time managing, weakness, shakiness, pain hard to manage and they brought her back to the ER for further w/u and management. Given this, decision made to admit, get MRI, see if any interventions w/ IR can be made, further pt/ot, and possible arrangement for SNF/rehab ultimately for strengthening if possible as this is too much for them to handle at home. -L sided sciatica w/ radiculopathy/weakness - xrays done at last admission, will proceed w/ MRI, she did not tolerate cyclobenzaprine (n/v), oxycodone ( diarrhea), prednisone (shaky/weak), but has tolerated celebrex, tylenol and morphine prn. Will order these for now, and pt/ot. -a fib - on propafenone, warfarin -mild hyponatremia - likely 2/2 pain, will follow, ivf NS if needed -htn in ER - typically w/o htn -likely 2/2 pain, anxiety, steroids - stop steroids, recheck bp, if still up treat w/ bb temporarily -dvt proph - warfarin -dispo - may need SNF acutely depending on MRI and options for treatment as she and spouse having very difficult time at home, may need more pt/ot will admit to inpt given as she may need >2MN. Plan: 05/18/16 10:22 Subjective: Doing ok, shaky this week, can't manage sx's at home, supportive family at bedside Objective: Vital Signs Temp Pulse Resp BP Pulse Ox 36.6 C 88 18 168/106 H 94 05/18/16 08:03 05/18/16 09:57 05/18/16 09:57 05/18/16 09:57 05/18/16 09:57 05/17/16 05/18/16 05/19/16 05:59 05:59 05:59 Intake Total 1000 Balance 1000 PT 19.1 SEC (12.0-15.0) H 05/18/16 07:51 INR 1.60 (0.83-1.16) H 05/18/16 07:51 Gen: A&O x 3, pleasant Heent: perrl, eomi Neck: soft, supple Chest: cta b CV: irreg irreg, borderline tachy Abd: soft nt but mildly distended from constipation Ext: c/d/i no edema Neuro/psych: pleasant, appropriate, oriented - Pending Discharge Pending Discharge Within 24 Hours: No ICD10 Worksheet Patient Problems: Problems Problem Status Onset Osteoarthritis Acute Sciatica Acute Vomiting Acute Dehydration Acute Elevated troponin Acute Chest discomfort Acute Weakness Acute
--- NOTE | 2016-05-18 11:57 | GHP ---
[f rep st] HISTORY AND PHYSICAL DATE OF ADMISSION: 05/18/2016 CHIEF COMPLAINT: Sciatica. HISTORY OF PRESENT ILLNESS: The patient is a pleasant 75-year-old female status post a recent admission approximately 1 week ago for the same complaint of sciatica, who has been struggling to get this under control, but with progressive weakness, radiculopathy, discomfort, and a difficult time managing at home despite supportive family. She came back to the ER today for further workup and evaluation. She had initially been treated for her sciatica with Flexeril, which, unfortunately, she developed nausea and vomiting with. She also was placed on Celebrex 100 mg 2 times a day, which she does tolerated, and then during her last admission she was continued on Celebrex, Tylenol, and managed with small dose p.r.n. morphine, which helped as well. She was discharged home with oxycodone p.r.n., but, unfortunately, she developed diarrhea with this. She came back in the office and saw her PCP, Ish Flores , and was placed on a methylprednisolone Prevpac, which did initially give her some relief from her sciatica, but she began to feel generalized weakness shakiness, and decreased strength and decreased appetite, and it became increasingly difficult for her and her spouse to manage. On presentation to the ER, she was also found to have mild hyponatremia and elevated blood pressure. MEDICAL HISTORY: Significant for atrial fibrillation, hip pain, GERD, macular degeneration, hyperparathyroidism, vertigo, hyperlipidemia, hypoxia, and hematuria. MEDICATIONS: Include vitamin D, duloxetine 30 mg twice a day, atorvastatin 20 mg daily, Coumadin 5 mg daily, Rythmol 225 mg t.i.d., Celebrex 100 mg p.o. b.i.d., omeprazole 20 mg p.o. b.i.d., aspirin 81 mg daily, calcium, fish oil, Flonase recently, in addition to tramadol, which she found did not give her much relief, and methylprednisolone, which she has 2 days left in her steroid taper, but is not going to finish. ALLERGIES: Ceftin and tetanus. PAST SURGICAL HISTORY: Appendectomy 2011, cholecystectomy 1996, and fistula. FAMILY HISTORY: Father at 88 from lung cancer and asbestosis. Mom at 89 with history of CAD, diabetes, thyroid disease. SOCIAL HISTORY: She is with a very supportive spouse and family. She is a former smoker, but has not smoked since 1986. She has 2 children, 1 of whom is here with her today, her daughter, with her son-in-law. REVIEW OF SYSTEMS: GENERAL: She denies any recent illnesses. No fevers or chills, but does have generalized weakness and decreased appetite. HEENT: Denies any change in vision. No sore throat. RESPIRATORY: Denies cough, shortness of breath, wheezing. CARDIOVACULAR: Denies any chest pain or pressure. No palpitations. GI: She was having nausea and vomiting from cyclobenzaprine and then having diarrhea from oxycodone, now with some constipation with the tramadol and methylprednisolone. : Negative. MUSCULOSKELETAL: Positive for left-sided sciatica with radiculopathy. PSYCHIATRIC/NEUROLOGIC: Alert and oriented, appropriate. Cognitive exam grossly intact. DERMATOLOGIC: Negative. PHYSICAL EXAMINATION: VITAL SIGNS: Blood pressure has now decreased to 155/ 87. When she initially presented to ER, blood pressure was elevated near 200/ 100. Heart rate 102. 94% on room air. Afebrile at 36.9 degrees. GENERAL: Alert and oriented x3, pleasant, surrounded by family at bedside. HEENT: PERRL. EOMI. NECK: Soft and supple. No thyromegaly appreciated. CHEST: Clear to auscultation bilaterally. No wheezes, rhonchi. CARDIOVASCULAR: Irregularly irregular, borderline tachycardiac. ABDOMEN: Soft, nontender, but mildly distended from constipation. MUSCULOSKELETAL: She is nontender over her spine. She does have tenderness over the left mid buttock area where expected to have the sciatic nerve pain. She has some radiculopathy down the left side of her leg with slightly decreased sensation to touch. Strength appears symmetric in bilateral lower extremities with normal reflexes. PSYCHIATRIC: She is alert and oriented, pleasant, and appropriate. ASSESSMENT AND PLAN: 1. A 75-year-old female with progressive sciatica with radiculopathy and weakness with difficulty managing at home with reactions to various medications that have been tried for her. She will be admitted with further imaging and MRI. We will have PT and OT consulted. Hopefully, something on her MRI will be amenable to possible interventional radiology intervention. Will treat with Celebrex, Tylenol, and morphine, as these are the medications that she has been able tolerate so far. There is a possibility she may need short-term stay with senior living facility/rehab facility to help with this, as this is becoming too much at home. 2. Atrial fibrillation. She is on propafenone and warfarin.She has held the warfarin for a couple days and will continue to hold for now and place on lovenox for possible upcoming intervention on her back. 3. Mild hyponatremia, likely secondary to pain and mild constipation as well as pain management and duloxetine. Will follow, reassess, and treat with IV fluids. Normal saline if needed. 4. Mild transitory hypertension in the ER. At the time of dictation, blood pressure has actually decreased to 133/78. This is likely secondary to pain and anxiety. Will continue to follow. 5. Deep venous thrombosis prophylaxis. She is on warfarin but holding for now see above. Will place on lovenox for now. DISPOSITION: She may need senior living facility or rehab, depending on results of MRI discussed above and assistance with management. Therefore, will admit her inpatient. Suspect she may need greater than 2 midnights. /[id number]/MODL MTDD
[2016-05-18] MEDS ORDERED: PROPYLENE GLYCOL EACHEYE PRN (12:23)
[2016-05-18] MEDS ORDERED: PEG EACHEYE PRN (12:23)
[2016-05-18] MEDS ORDERED: Herbals/Supplements -Info Only PO SCH (12:30)
[2016-05-18] MEDS ORDERED: CARBOXYMETHYLCELLULOSE 1% 0.4 ML DROPERETTE EACHEYE PRN (12:39)
[2016-05-18] MEDS: CALCIUM CARB W/VIT D 500 MG TAB PO SCH ×2 (12:58→18:39)
[2016-05-18] MEDS: PROPAFENONE HCL 150 MG TAB PO SCH ×2 (12:59→17:22)
[2016-05-18] MEDS: ENOXAPARIN 120 MG/0.8 ML SYR SC SCH ×2 (12:59→22:21)
[2016-05-18] MEDS ORDERED: PROPAFENONE HCL 225 MG PO SCH (16:00)
[2016-05-18] MEDS ORDERED: METOPROLOL TARTRATE 25 MG TAB PO ONE (17:03)
[2016-05-18] MEDS ORDERED: LOSARTAN POTASSIUM 50 MG TAB PO SCH (18:30)
[2016-05-18] MEDS: ATORVASTATIN CALCIUM 20 MG TAB PO SCH (18:39)
[2016-05-18] MEDS: OMEGA-3 FATTY ACIDS 1,000 MG CAP PO SCH (18:39)
[2016-05-18] MEDS ORDERED: ENOXAPARIN 40 MG/0.4 ML SYR SC SCH (21:00)
[2016-05-18] MEDS: VITAMIN B COMPLEX 1 EA CAP/TAB PO SCH (22:20)
[2016-05-18] MEDS: SENNOSIDES/DOCUSATE SODIUM TAB PO SCH (22:21)
[2016-05-19 05:45] LABS: INR 1.73 (0.83-1.16); PROTIME(PATIENT) 20.3 SEC (12.0-15.0)
[2016-05-19 05:50] LABS: ANION GAP 8 mEq/L (8-16); CALCIUM 9.6 mg/dL (8.5-10.4); CARBON DIOXIDE 27 mEq/l (22-31); CHLORIDE 95 mEq/L (97-110); CREATININE 0.8 mg/dL (0.6-1.0); GLOMERULAR FILTRATION RATE > 60; GLUCOSE 105 mg/dL (70-100); POTASSIUM 3.8 mEq/L (3.5-5.2); SODIUM 130 mEq/L (134-144)
--- NOTE | 2016-05-19 08:52 | SOAPPROG ---
SOAP Progress Note Assessment/Plan: Assessment: Plan: 05/19/16 08:52 acute encephalopathy--improving. Suspect due to HTN, recent steroids (Medrol DosePak) and an extra dose of duloxetine. Continue to follow progress hyponatremia--mild, likely secondary to stress. Gentle IVF's today HTN--likely due to steroids, will increase losartan and add low dose metoprolol BID a fib--normally on coumadin, held for probable HUSSAIN. On lovenox, rate a bit higher today, metoprolol should help left sciatica limiting home function. 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 No ZAPATA. She feels more alert than yesterday. The patient's agrees there is improved clarity. Limited appetite. + n/v yesterday, now resolved. Shakiness is better . Objective: Vital Signs Temp Pulse Resp BP Pulse Ox 36.6 C 103 H 16 163/112 H 95 05/19/16 07:52 05/19/16 07:52 05/19/16 07:52 05/19/16 07:52 05/19/16 07:52 Laboratory Results 05/19/16 05:00 05/18/16 05/19/16 05/20/16 05:59 05:59 05:59 Intake Total 1600 Balance 1600 PT 20.3 SEC (12.0-15.0) H 05/19/16 05:00 INR 1.73 (0.83-1.16) H 05/19/16 05:00 Gen: NAD, mildly muddled HEENT: stable visual challenges. Speech clear, neck without masses Lungs: CTAB Heart: irreg irreg with some rapidity Abd + bs , soft NT, ND LE's minimal left foot weakness with plantar flexion. No perceived numbness left thigh Neuro: follows commands. Sleepy. Speed of processing below baseline ICD10 Worksheet Patient Problems: Problems Problem Status Onset Weakness Acute Chest discomfort Acute Dehydration Acute Elevated troponin Acute Osteoarthritis Acute Sciatica Acute Vomiting Acute
[2016-05-19] MEDS ORDERED: VIT C PO SCH (09:00)
[2016-05-19] MEDS ORDERED: DULoxetine 60 MG CAP PO SCH (09:00)
[2016-05-19] MEDS ORDERED: VIT E PO SCH (09:00)
[2016-05-19] MEDS ORDERED: OMEGA PO SCH (09:00)
[2016-05-19] MEDS ORDERED: LUTEIN PO SCH (09:00)
[2016-05-19] MEDS: PRESERVISION AREDS2 FORMULA EYE VIT 1 EACH PO SCH (09:41)
[2016-05-19] MEDS: ASPIRIN 81 MG CHEWABLE TAB PO SCH (09:41)
[2016-05-19] MEDS: ASCORBIC ACID 250 MG TAB PO SCH (09:41)
[2016-05-19] MEDS: CHOLECALCIFEROL VIT D3 1,000 UNITS TAB PO SCH (09:42)
[2016-05-19] MEDS: CALCIUM CARB W/VIT D 500 MG TAB PO SCH ×4 (09:42→19:07)
[2016-05-19] MEDS: DULoxetine 30 MG CAP PO SCH (09:43)
[2016-05-19] MEDS: ENOXAPARIN 120 MG/0.8 ML SYR SC SCH ×2 (09:43→20:47)
[2016-05-19] MEDS: FAMOTIDINE 20 MG TAB PO SCH ×2 (09:44→20:47)
[2016-05-19] MEDS: ERGOCALCIFEROL 50,000 I.UNIT CAP PO SCH (09:44)
[2016-05-19] MEDS: LOSARTAN POTASSIUM 50 MG TAB PO SCH ×2 (09:45→20:47)
[2016-05-19] MEDS: METOPROLOL TARTRATE 25 MG TAB PO SCH (09:46)
[2016-05-19] MEDS: MULTIVITAMINS 1 EACH TAB PO SCH (09:47)
[2016-05-19] MEDS: PROPAFENONE HCL 150 MG TAB PO SCH ×3 (09:47→17:58)
[2016-05-19] MEDS: OMEGA-3 FATTY ACIDS 1,000 MG CAP PO SCH ×2 (09:47→17:58)
[2016-05-19] MEDS: VITAMIN B COMPLEX 1 EA CAP/TAB PO SCH ×2 (09:48→20:47)
[2016-05-19] MEDS: SENNOSIDES/DOCUSATE SODIUM TAB PO SCH ×2 (09:48→20:47)
[2016-05-19 11:11] LABS: COLOR YELLOW; LEUKOCYTE ESTERASE,URINE 1+ (NEGATIVE); NITRITE,URINE NEGATIVE (NEGATIVE)
[2016-05-19] MEDS ORDERED: TRIAMCINOLONE ACETONIDE 200 MG/5 ML MDV IM ONE (14:53)
[2016-05-19] MEDS ORDERED: LIDOCAINE 1% 30 ML SDV ONE (14:53)
[2016-05-19] MEDS: ATORVASTATIN CALCIUM 20 MG TAB PO SCH (17:58)
[2016-05-19] MEDS ORDERED: NS 250 ML IV ONE (18:00)
[2016-05-20 05:31] LABS: % IMMATURE GRANULYOCYTES 0.4 % (0.0-1.1); ABSOLUTE IMMATURE GRANULOCYTES 0.05 10^3/uL (0.00-0.10); ADD DIFF? NO; ADD MORPH? NO; ADD SCAN? NO; ATYPICAL LYMPHOCYTE FLAG 0 (0-99); FRAGMENT RBC FLAG 0 (0-99); HEMATOCRIT 36.9 % (38.0-47.0); HEMOGLOBIN 12.7 g/dL (12.6-16.3); LEFT SHIFT FLG 0 (0-99); LIPEMIA HEMOLYSIS FLAG 90 (0-99); MEAN CELL HEMOGLOBIN CONCENTR. 34.4 g/dL (32.4-36.7); MEAN CELL VOLUME 92.9 fL (81.5-99.8); MEAN PLATELET VOLUME 10.3 fL (8.7-11.7); PLATELET CLUMPS FLAG 0 (0-99); PLATELET COUNT 217 10^3/uL (150-400); RED BLOOD CELL COUNT 3.97 10^6/uL (4.18-5.33); RED CELL DISTRIBUTION WIDTH 14.2 % (11.5-15.2)
[2016-05-20 05:58] LABS: ANION GAP 8 mEq/L (8-16); CALCIUM 9.4 mg/dL (8.5-10.4); CARBON DIOXIDE 26 mEq/l (22-31); CHLORIDE 95 mEq/L (97-110); GLOMERULAR FILTRATION RATE 54; GLUCOSE 116 mg/dL (70-100); SODIUM 129 mEq/L (134-144)
[2016-05-20 06:00] LABS: INR 1.73 (0.83-1.16); PROTIME(PATIENT) 20.3 SEC (12.0-15.0)
[2016-05-20] MEDS: NS 1,000 ML IV SCH ×2 (08:17→13:37)
[2016-05-20] MEDS: CHOLECALCIFEROL VIT D3 1,000 UNITS TAB PO SCH (08:51)
[2016-05-20] MEDS: VITAMIN B COMPLEX 1 EA CAP/TAB PO SCH ×2 (08:51→21:03)
[2016-05-20] MEDS: OMEGA-3 FATTY ACIDS 1,000 MG CAP PO SCH ×2 (08:51→21:03)
[2016-05-20] MEDS: SENNOSIDES/DOCUSATE SODIUM TAB PO SCH ×2 (08:51→21:03)
[2016-05-20] MEDS: DULoxetine 30 MG CAP PO SCH (08:52)
[2016-05-20] MEDS: CALCIUM CARB W/VIT D 500 MG TAB PO SCH ×3 (08:52→21:05)
[2016-05-20] MEDS: ASCORBIC ACID 250 MG TAB PO SCH (08:52)
[2016-05-20] MEDS: PROPAFENONE HCL 150 MG TAB PO SCH ×3 (08:52→21:04)
[2016-05-20] MEDS: ASPIRIN 81 MG CHEWABLE TAB PO SCH (08:52)
[2016-05-20] MEDS: PRESERVISION AREDS2 FORMULA EYE VIT 1 EACH PO SCH (08:53)
[2016-05-20] MEDS: LOSARTAN POTASSIUM 50 MG TAB PO SCH (08:53)
[2016-05-20] MEDS: ENOXAPARIN 120 MG/0.8 ML SYR SC SCH ×2 (08:53→21:06)
[2016-05-20] MEDS: FAMOTIDINE 20 MG TAB PO SCH ×2 (08:53→21:04)
[2016-05-20] MEDS: MULTIVITAMINS 1 EACH TAB PO SCH (08:53)
--- NOTE | 2016-05-20 09:33 | SOAPPROG ---
[facility] Progress Note Assessment/Plan: Assessment: 75 yo abi lady accompanied by spouse and dtr and son-in-law for increased weakness and pain from L sided sciatica. Was in the hospital for this a week ago and was treated w/ pain mngt, pt/ot was better and d/c home, but unfortunately as the week progressed everything more progressively difficult, spouse having a hard time managing, weakness, shakiness, pain hard to manage and they brought her back to the ER for further w/u and management. Given this, decision made to admit, get MRI, see if any interventions w/ IR can be made, further pt/ot, and possible arrangement for SNF/rehab ultimately for strengthening if possible as this is too much for them to handle at home. -L sided sciatica w/ radiculopathy/weakness - xrays done at last admission, will proceed w/ MRI, she did not tolerate cyclobenzaprine (n/v), oxycodone ( diarrhea), prednisone (shaky/weak), but has tolerated celebrex, tylenol and morphine prn. Will order these for now, and pt/ot. -a fib - on propafenone, warfarin -mild hyponatremia - likely 2/2 pain, will follow, ivf NS if needed -htn in ER - typically w/o htn -likely 2/2 pain, anxiety, steroids - stop steroids, recheck bp, if still up treat w/ bb temporarily -dvt proph - warfarin -dispo - may need SNF acutely depending on MRI and options for treatment as she and spouse having very difficult time at home, may need more pt/ot will admit to inpt given as she may need >2MN. Plan: 05/18/16 10:22 05/20/16 09:28 75 yo female admitted w/ sciatica, weakness, shakiness, htn, hypona- -s/p IR injection yesterday - to work w/ pt/ot today - she does feel like the injection gave her quite a bit of relief, would like to assess how she is doing , will need rehab/snf and spouse and pt in agreement for this as she was recently admitted for same issue w/ trial at home w/o success -a fib - restart warfarin today, cont propafenone, on arb and low dose bb. BP was low last night but up again this am (prior to taking meds). Will cont to watch and titrate meds - may be able to d/c bb if improves -hypna - encouraged concentrated fluids, cont iv NS - increased rate to 125, had increased fatigue this am, will give small bolus ns -dispo - likely will need SNF. Will place case management consult. Subjective: DOing ok, feels better as far as sciatica, but felt woozy last night when bp was low (but high now) Objective: Vital Signs Temp Pulse Resp BP Pulse Ox 36.4 C 95 20 146/116 H 100 05/19/16 23:40 05/20/16 08:00 05/20/16 08:00 05/20/16 08:00 05/20/16 08:00 Laboratory Results 05/20/16 05:02 05/20/16 05:02 05/19/16 05/20/16 05/21/16 05:59 05:59 05:59 Intake Total 1600 Output Total 200 Balance 1600 -200 PT 20.3 SEC (12.0-15.0) H 05/20/16 05:02 INR 1.73 (0.83-1.16) H 05/20/16 05:02 Gen: pleasant, oriented, spouse and RN at bedside, is alert Heent: perr, eomi Neck: soft supple CHest: cta b CV: distant hs but rr Abd: soft nt + bs Ext: c/d/i , bruising L arm decub Neuro: A&Ox 3 appropriate on exam - Pending Discharge Pending Discharge Within 48 Hours: Yes Pending Discharge Date: 05/22/16 Pending Discharge Time: 11:00 ICD10 Worksheet Patient Problems: Problems Problem Status Onset Osteoarthritis Acute Sciatica Acute Vomiting Acute Dehydration Acute Elevated troponin Acute Chest discomfort Acute Weakness Acute
[2016-05-20] MEDS ORDERED: NS 500 ML IV ONE ×3 (09:35→17:55)
[2016-05-20] MEDS: METOPROLOL TARTRATE 25 MG TAB PO SCH ×2 (10:45→21:08)
[2016-05-20] MEDS ORDERED: WARFARIN SODIUM 1 MG TAB PO SCH (16:00)
[2016-05-20] MEDS ORDERED: FUROSEMIDE 20 MG/2 ML VIAL IVP ONE (17:55)
[2016-05-20] MEDS: ATORVASTATIN CALCIUM 20 MG TAB PO SCH (21:04)
[2016-05-21] MEDS: LOSARTAN POTASSIUM 50 MG TAB PO SCH (00:06)
[2016-05-21 05:32] LABS: % IMMATURE GRANULYOCYTES 0.5 % (0.0-1.1); ABSOLUTE IMMATURE GRANULOCYTES 0.06 10^3/uL (0.00-0.10); ADD DIFF? NO; ADD MORPH? NO; ADD SCAN? NO; ATYPICAL LYMPHOCYTE FLAG 0 (0-99); FRAGMENT RBC FLAG 0 (0-99); HEMATOCRIT 31.6 % (38.0-47.0); HEMOGLOBIN 10.5 g/dL (12.6-16.3); LEFT SHIFT FLG 0 (0-99); LIPEMIA HEMOLYSIS FLAG 80 (0-99); MEAN CELL HEMOGLOBIN 31.9 pg (27.9-34.1); MEAN CELL HEMOGLOBIN CONCENTR. 33.2 g/dL (32.4-36.7); MEAN PLATELET VOLUME 10.3 fL (8.7-11.7); PLATELET CLUMPS FLAG 0 (0-99); PLATELET COUNT 172 10^3/uL (150-400); RED BLOOD CELL COUNT 3.29 10^6/uL (4.18-5.33); RED CELL DISTRIBUTION WIDTH 14.6 % (11.5-15.2)
[2016-05-21 06:01] LABS: ANION GAP 9 mEq/L (8-16); CALCIUM 8.8 mg/dL (8.5-10.4); CARBON DIOXIDE 19 mEq/l (22-31); CHLORIDE 103 mEq/L (97-110); CREATININE 0.8 mg/dL (0.6-1.0); GLOMERULAR FILTRATION RATE > 60; GLUCOSE 91 mg/dL (70-100); POTASSIUM 4.2 mEq/L (3.5-5.2); SODIUM 131 mEq/L (134-144)
--- NOTE | 2016-05-21 09:09 | SOAPPROG ---
[facility] Progress Note Assessment/Plan: Assessment: Plan: 05/19/16 08:52 acute encephalopathy--improving. Suspect due to HTN, recent steroids (Medrol DosePak) and an extra dose of duloxetine. Continue to follow progress hyponatremia--mild, likely secondary to stress. Gentle IVF's today HTN--likely due to steroids, will increase losartan and add low dose metoprolol BID a fib--normally on coumadin, held for probable HUSSAIN. On lovenox, rate a bit higher today, metoprolol should help left sciatica limiting home function. MRI with complex central canal stenosis and left L3-4, L4-5 NFI--IR consult for hopeful HUSSAIN 05/21/16 09:09 new finding of small right frontal parietal hemorrhage. Will check MRI non- contrast. Neurology consult. Anticoag held except for ASA. Add ST consult labile BP--orthostatic issue this am. BP meds on PRN given lability a fib--off anticoag now given CVA--await further neurology input on this matter Left leg sciatica--pain better after HUSSAIN hyponatremia--improving--continue IVF's Subjective: Feels weak, spacey, not herself. Limited ZAPATA this am after multiple person urgent transfer off commode. He was hypotensive on the commode. No other headache. Stable complicated visual change-stable. moderate macular degeneration as a baseline. No SOB, NO CP + BM this am Objective: Vital Signs Temp Pulse Resp BP Pulse Ox 36.8 C 86 16 120/99 H 93 05/21/16 07:54 05/21/16 08:59 05/21/16 07:54 05/21/16 08:59 05/21/16 07:54 Laboratory Results 05/21/16 05:01 05/21/16 05:01 05/20/16 05/21/16 05/22/16 05:59 05:59 05:59 Intake Total 3650 Output Total 200 1150 Balance -200 2500 PT 20.3 SEC (12.0-15.0) H 05/20/16 05:02 INR 1.73 (0.83-1.16) H 05/20/16 05:02 Gen: pale, worried, initially seen today to help her off the commode. Multiple person lift required HEENT: stable hearing loss, eyes tract appropriately, speech mildly slurred at times--subtle Neck: NL ROM Lungs: CTAB Heart: distant HS, intermittent a fib Abd + bs soft NT LE's no edema LUE: large hematoma Neuro: cognitive processing speed below baseline. Difficulty processing the information regarding her new hemorrhagic stroke. Follow commands easily. Globally weak attempting to get off commode, but BP dropped to 69 systolic ICD10 Worksheet Patient Problems: Problems Problem Status Onset Weakness Acute Chest discomfort Acute Dehydration Acute Elevated troponin Acute Osteoarthritis Acute Sciatica Acute Vomiting Acute
[2016-05-21] MEDS: VITAMIN B COMPLEX 1 EA CAP/TAB PO SCH ×2 (09:44→20:04)
[2016-05-21] MEDS: CALCIUM CARB W/VIT D 500 MG TAB PO SCH ×3 (09:44→18:30)
[2016-05-21] MEDS: PRESERVISION AREDS2 FORMULA EYE VIT 1 EACH PO SCH (09:44)
[2016-05-21] MEDS: OMEGA-3 FATTY ACIDS 1,000 MG CAP PO SCH ×2 (09:44→18:31)
[2016-05-21] MEDS: DULoxetine 30 MG CAP PO SCH (09:44)
[2016-05-21] MEDS: MULTIVITAMINS 1 EACH TAB PO SCH (09:44)
[2016-05-21] MEDS: FAMOTIDINE 20 MG TAB PO SCH ×2 (09:44→20:03)
[2016-05-21] MEDS: CHOLECALCIFEROL VIT D3 1,000 UNITS TAB PO SCH (09:44)
[2016-05-21] MEDS: ASPIRIN 81 MG CHEWABLE TAB PO SCH (09:45)
[2016-05-21] MEDS: PROPAFENONE HCL 150 MG TAB PO SCH ×3 (09:45→18:30)
[2016-05-21] MEDS: ASCORBIC ACID 250 MG TAB PO SCH (09:45)
[2016-05-21] MEDS: SENNOSIDES/DOCUSATE SODIUM TAB PO SCH ×2 (09:49→20:33)
[2016-05-21] MEDS ORDERED: IOPAMIDOL (ISOVUE-M 300) 15 ML VIAL IV ONE (11:32)
[2016-05-21] MEDS ORDERED: TRIAMCINOLONE ACETONIDE 200 MG/5 ML MDV IM ONE (11:32)
[2016-05-21 13:54] LABS: INR 1.96 (0.83-1.16); PROTIME(PATIENT) 22.4 SEC (12.0-15.0)
[2016-05-21] MEDS: ATORVASTATIN CALCIUM 20 MG TAB PO SCH (18:30)
--- NOTE | 2016-05-21 19:58 | GCON ---
NEUROLOGY CONSULT REFERRING PHYSICIAN: MATT Foster CHIEF COMPLAINT: Intracranial hemorrhage. HISTORY OF PRESENT ILLNESS: The patient is a very pleasant 75-year-old lady who was initially admitted on May 18, 2016, for generalized weakness and left-sided sciatica. She has had an injection by Dr. Kilgore and some encephalopathy that is clearing that is likely multifactorial. In the course of this workup, she had a head CT, which showed a small right frontal focal hemorrhage in the cortex. MRI brain was then done, which showed a late acute/ subacute 3 x 2 cm right anterior superior frontal hemorrhage with some associated subarachnoid hemorrhage and restriction diffusion. In addition, the susceptibility weighted images show old foci of hemosiderin consistent with previous hemorrhages. These findings are suggestive of atypical cerebral amyloid angiopathy. In addition, the patient has atrial fibrillation and is on warfarin. This was stopped after the above findings were noted. REVIEW OF SYSTEMS: Ten-point review of systems was done and only pertinent to the HPI. PAST MEDICAL HISTORY: Please refer to the History and Physical by Dr. Sharda Ptaton. SOCIAL HISTORY: Please refer to the History and Physical by Dr. Sharda Patton. FAMILY HISTORY: Please refer to the History and Physical by Dr. Sharda Patton. ALLERGIES: Please refer to the History and Physical by Dr. Sharda Patton. HOME MEDICATIONS: Please refer to the History and Physical by Dr. Sharda Patton. PHYSICAL EXAM: VITAL SIGNS: 115/71, heart rate 80, O2 sats 93%, temperature 36.6. GENERAL: No acute distress, very pleasant. The patient is awake and alert. NEUROLOGIC: Higher mental function: No aphasia. Cranial nerve exam normal 2 through 7. Motor exam: No focal weakness. Tone is normal. Reflexes are symmetric. Sensory: Normal to light touch throughout. IMPRESSION/PLAN: 1. Acute/subacute right frontal hemorrhage. 2. Probable underlying cerebral amyloid angiopathy. 3. Atrial fibrillation Her MRI susceptibility weighted images (SWI) show old foci of previous hemorrhages that are multifocal in the superficial lobar regions. The findings are not entirely typical of amyloid angiopathy due to the few number of previous microhemorrhages and unilateral nature. However, she denies any history of head trauma to explain any other cause for her microhemorrhages in the lobar regions. Therefore findings are suggestive of early or atypical cerebral amyloid angiopathy. The patient also has atrial fibrillation and is on Coumadin at home. Oral anticoagulation is contraindicated in cerebral amyloid angiopathy. Based on her current MRI imaging, I recommend permanent discontinuation of oral anticoagulation. Anti-platelet therapy in this setting is not clear. There is no preponderance of evidence on the optimal management in this situation ( cerebral amyloid angiopathy and atrial fibrillation). I discussed at length with the patient and her family regarding the risk of aspirin and bleeding with amyloid angiopathy and the risk of ischemic stroke with atrial fibrillation. She and her will think about it at length and let Mr. Flores or his colleagues know what they would like to do. The decision will be to be on no antithrombotic versus baby aspirin alone. As there is no clear evidence, either choice is reasonable based on the evidence provided at length to the patient regarding the risks, benefits, and alternatives of each decision. She has no clear-cut deficits from this current acute hemorrhage. I have no further recommendations now. We will continue to follow this very nice lady as needed. Please do not hesitate to call with any questions or if there are any further neurologic changes. Thank you for this consultation. /[id number]/MODL MTDD
[2016-05-21] MEDS: ACETAMINOPHEN 325 MG TAB PO PRN (20:03)
[2016-05-22 06:06] LABS: % IMMATURE GRANULYOCYTES 0.5 % (0.0-1.1); ABSOLUTE IMMATURE GRANULOCYTES 0.06 10^3/uL (0.00-0.10); ADD DIFF? NO; ADD MORPH? NO; ADD SCAN? NO; ATYPICAL LYMPHOCYTE FLAG 0 (0-99); FRAGMENT RBC FLAG 0 (0-99); HEMATOCRIT 28.9 % (38.0-47.0); HEMOGLOBIN 9.7 g/dL (12.6-16.3); LEFT SHIFT FLG 0 (0-99); LIPEMIA HEMOLYSIS FLAG 80 (0-99); MEAN CELL HEMOGLOBIN 32.1 pg (27.9-34.1); MEAN CELL HEMOGLOBIN CONCENTR. 33.6 g/dL (32.4-36.7); MEAN CELL VOLUME 95.7 fL (81.5-99.8); MEAN PLATELET VOLUME 10.7 fL (8.7-11.7); PLATELET CLUMPS FLAG 0 (0-99); PLATELET COUNT 173 10^3/uL (150-400); RED BLOOD CELL COUNT 3.02 10^6/uL (4.18-5.33); RED CELL DISTRIBUTION WIDTH 14.5 % (11.5-15.2)
[2016-05-22 06:26] LABS: ALANINE AMINOTRANSFERASE 43 IU/L (9-52); ALBUMIN 2.8 g/dL (3.5-5.0); ALKALINE PHOSPHATASE 58 IU/L (38-126); ANION GAP 6 mEq/L (8-16); ASPARTATE AMINOTRANSFERASE 24 IU/L (14-46); CALCIUM 8.8 mg/dL (8.5-10.4); CARBON DIOXIDE 24 mEq/l (22-31); CHLORIDE 102 mEq/L (97-110); CREATININE 0.9 mg/dL (0.6-1.0); GLOMERULAR FILTRATION RATE > 60; GLUCOSE 100 mg/dL (70-100); POTASSIUM 4.1 mEq/L (3.5-5.2); SODIUM 132 mEq/L (134-144); TOTAL PROTEIN 5.1 g/dL (6.3-8.2)
[2016-05-22] MEDS: CHOLECALCIFEROL VIT D3 1,000 UNITS TAB PO SCH (08:21)
[2016-05-22] MEDS: ASPIRIN 81 MG CHEWABLE TAB PO SCH (08:21)
[2016-05-22] MEDS: SENNOSIDES/DOCUSATE SODIUM TAB PO SCH ×2 (08:21→19:59)
[2016-05-22] MEDS: OMEGA-3 FATTY ACIDS 1,000 MG CAP PO SCH ×2 (08:21→18:25)
[2016-05-22] MEDS: VITAMIN B COMPLEX 1 EA CAP/TAB PO SCH ×2 (08:21→19:59)
[2016-05-22] MEDS: CALCIUM CARB W/VIT D 500 MG TAB PO SCH ×3 (08:21→18:18)
[2016-05-22] MEDS: ASCORBIC ACID 250 MG TAB PO SCH (08:21)
[2016-05-22] MEDS: PRESERVISION AREDS2 FORMULA EYE VIT 1 EACH PO SCH (08:21)
[2016-05-22] MEDS: DULoxetine 30 MG CAP PO SCH (08:21)
[2016-05-22] MEDS: FAMOTIDINE 20 MG TAB PO SCH ×2 (08:21→19:58)
[2016-05-22] MEDS: MULTIVITAMINS 1 EACH TAB PO SCH (08:21)
[2016-05-22] MEDS: PROPAFENONE HCL 150 MG TAB PO SCH ×3 (08:22→18:26)
--- NOTE | 2016-05-22 09:19 | SOAPPROG ---
[facility] Progress Note Assessment/Plan: Assessment: Plan: 05/19/16 08:52 acute encephalopathy--improving. Suspect due to HTN, recent steroids (Medrol DosePak) and an extra dose of duloxetine. Continue to follow progress hyponatremia--mild, likely secondary to stress. Gentle IVF's today HTN--likely due to steroids, will increase losartan and add low dose metoprolol BID a fib--normally on coumadin, held for probable HUSSAIN. On lovenox, rate a bit higher today, metoprolol should help left sciatica limiting home function. MRI with complex central canal stenosis and left L3-4, L4-5 NFI--IR consult for hopeful HUSSAIN 05/21/16 09:09 new finding of small right frontal parietal hemorrhage. Will check MRI non- contrast. Neurology consult. Anticoag held except for ASA. Add ST consult labile BP--orthostatic issue this am. BP meds on PRN given lability a fib--off anticoag now given CVA--await further neurology input on this matter Left leg sciatica--pain better after HUSSAIN hyponatremia--improving--continue IVF's 05/22/16 09:15 frontal bleed--appreciate neurology consult. Amyloid angiopathy and contraindication for anticoagulation was discussed in detail with patient. We discussed potential interventional cardiology EP keke in the future. She really need marked improvement in strength before much could be considered. weakness, CVA--Inpatient rehab consult, SNF if she doesnt qualify for inpatient rehab a fib--rate stable d/c ASA given lack of benefit and bleeding risk labile BP stable weakness--encouraged to participate with PT-OT-ST today hyponatremia-improved, stable anemia--recheck in am left sciatica--better Subjective: The patient has a good grasp of her challenging situation. She is comfortable relying on her tasha. No acute complaints today. Weakness and immobility remain to be significant challenges. Objective: Vital Signs Temp Pulse Resp BP Pulse Ox 36.6 C 95 16 107/51 L 96 05/22/16 07:40 05/22/16 07:40 05/22/16 07:40 05/22/16 07:40 05/22/16 07:40 Laboratory Results 05/22/16 05:24 05/22/16 05:24 05/21/16 05/22/16 05/23/16 05:59 05:59 05:59 Intake Total 3650 300 Output Total 1150 Balance 2500 300 PT 22.4 SEC (12.0-15.0) H 05/21/16 13:23 INR 1.96 (0.83-1.16) H 05/21/16 13:23 Gen: NAD, pleasant Lungs: CTAB Heart: irreg irreg with rate control Abd + bs soft obese LUE significant ecchymosis LE's no edema Hgb 9.7 INR 1.96 yesterday--off coumadin for days ICD10 Worksheet Patient Problems: Problems Problem Status Onset Weakness Acute Chest discomfort Acute Dehydration Acute Elevated troponin Acute Osteoarthritis Acute Sciatica Acute Vomiting Acute
[2016-05-22] MEDS: ATORVASTATIN CALCIUM 20 MG TAB PO SCH (18:18)
[2016-05-22] MEDS: ACETAMINOPHEN 325 MG TAB PO PRN (18:21)
[2016-05-23] MEDS: ACETAMINOPHEN 325 MG TAB PO PRN ×2 (00:37→19:57)
[2016-05-23 05:38] LABS: % IMMATURE GRANULYOCYTES 0.5 % (0.0-1.1); ABSOLUTE IMMATURE GRANULOCYTES 0.04 10^3/uL (0.00-0.10); ADD DIFF? NO; ADD MORPH? NO; ADD SCAN? NO; ATYPICAL LYMPHOCYTE FLAG 0 (0-99); FRAGMENT RBC FLAG 0 (0-99); HEMATOCRIT 29.6 % (38.0-47.0); HEMOGLOBIN 9.6 g/dL (12.6-16.3); LEFT SHIFT FLG 0 (0-99); LIPEMIA HEMOLYSIS FLAG 80 (0-99); MEAN CELL HEMOGLOBIN CONCENTR. 32.4 g/dL (32.4-36.7); MEAN CELL VOLUME 98.7 fL (81.5-99.8); MEAN PLATELET VOLUME 10.8 fL (8.7-11.7); PLATELET CLUMPS FLAG 0 (0-99); PLATELET COUNT 157 10^3/uL (150-400); RED CELL DISTRIBUTION WIDTH 14.6 % (11.5-15.2)
[2016-05-23 05:53] LABS: ANION GAP 6 mEq/L (8-16); CALCIUM 9.2 mg/dL (8.5-10.4); CARBON DIOXIDE 21 mEq/l (22-31); CHLORIDE 104 mEq/L (97-110); CREATININE 0.8 mg/dL (0.6-1.0); GLOMERULAR FILTRATION RATE > 60; GLUCOSE 98 mg/dL (70-100); POTASSIUM 4.4 mEq/L (3.5-5.2); SODIUM 131 mEq/L (134-144)
[2016-05-23] MEDS: CALCIUM CARB W/VIT D 500 MG TAB PO SCH ×3 (08:24→18:18)
[2016-05-23] MEDS: PROPAFENONE HCL 150 MG TAB PO SCH ×3 (08:24→18:17)
--- NOTE | 2016-05-23 08:57 | SOAPPROG ---
[facility] Progress Note Assessment/Plan: Assessment: Plan: 05/19/16 08:52 acute encephalopathy--improving. Suspect due to HTN, recent steroids (Medrol DosePak) and an extra dose of duloxetine. Continue to follow progress hyponatremia--mild, likely secondary to stress. Gentle IVF's today HTN--likely due to steroids, will increase losartan and add low dose metoprolol BID a fib--normally on coumadin, held for probable HUSSAIN. On lovenox, rate a bit higher today, metoprolol should help left sciatica limiting home function. MRI with complex central canal stenosis and left L3-4, L4-5 NFI--IR consult for hopeful HUSSAIN 05/21/16 09:09 new finding of small right frontal parietal hemorrhage. Will check MRI non- contrast. Neurology consult. Anticoag held except for ASA. Add ST consult labile BP--orthostatic issue this am. BP meds on PRN given lability a fib--off anticoag now given CVA--await further neurology input on this matter Left leg sciatica--pain better after HUSSAIN hyponatremia--improving--continue IVF's 05/22/16 09:15 frontal bleed--appreciate neurology consult. Amyloid angiopathy and contraindication for anticoagulation was discussed in detail with patient. We discussed potential interventional cardiology EP keke in the future. She really need marked improvement in strength before much could be considered. 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 [facility] is suspected preference Subjective: Patient is comfortable sitting up in chair eating breakfast. She is surprised by her shakiness and weakness. No CP, NO SOB, appetite improving. Objective: Vital Signs Temp Pulse Resp BP Pulse Ox 36.6 C 85 16 117/95 H 100 05/23/16 07:40 05/23/16 07:40 05/23/16 07:40 05/23/16 07:40 05/23/16 07:40 Laboratory Results 05/23/16 04:22 05/23/16 04:22 05/22/16 05/23/16 05/24/16 05:59 05:59 05:59 Intake Total 300 1200 Output Total 500 Balance 300 700 PT 22.4 SEC (12.0-15.0) H 05/21/16 13:23 INR 1.96 (0.83-1.16) H 05/21/16 13:23 Gen: Brighter HEENT: stable low vision Heart: irreg irreg, rate controlled Lungs: CTAB Neuro: some word finding challenges, hearing deficits aggravate communication. Time/day orientation with some challenges Abd + bs, soft LE's no edema PT/OT notes reviewed--will need SNF Hgb stable, WBC improved, Na+ stable range ICD10 Worksheet Patient Problems: Problems Problem Status Onset Weakness Acute Chest discomfort Acute Dehydration Acute Elevated troponin Acute Osteoarthritis Acute Sciatica Acute Vomiting Acute
[2016-05-23] MEDS: OMEGA-3 FATTY ACIDS 1,000 MG CAP PO SCH ×2 (09:24→18:18)
[2016-05-23] MEDS: VITAMIN B COMPLEX 1 EA CAP/TAB PO SCH ×2 (09:25→19:52)
[2016-05-23] MEDS: CHOLECALCIFEROL VIT D3 1,000 UNITS TAB PO SCH (09:25)
[2016-05-23] MEDS: SENNOSIDES/DOCUSATE SODIUM TAB PO SCH ×2 (09:25→19:53)
[2016-05-23] MEDS: DULoxetine 30 MG CAP PO SCH (09:25)
[2016-05-23] MEDS: FAMOTIDINE 20 MG TAB PO SCH ×2 (09:25→19:53)
[2016-05-23] MEDS: PRESERVISION AREDS2 FORMULA EYE VIT 1 EACH PO SCH (09:25)
[2016-05-23] MEDS: MULTIVITAMINS 1 EACH TAB PO SCH (09:25)
[2016-05-23] MEDS: ASCORBIC ACID 250 MG TAB PO SCH (10:54)
[2016-05-23] MEDS: ATORVASTATIN CALCIUM 20 MG TAB PO SCH (18:18)
[2016-05-24] MEDS: PROPAFENONE HCL 150 MG TAB PO SCH ×3 (08:01→17:40)
[2016-05-24] MEDS: SENNOSIDES/DOCUSATE SODIUM TAB PO SCH ×2 (08:03→20:36)
[2016-05-24] MEDS: PRESERVISION AREDS2 FORMULA EYE VIT 1 EACH PO SCH (08:05)
[2016-05-24] MEDS: FAMOTIDINE 20 MG TAB PO SCH ×2 (08:05→20:36)
[2016-05-24] MEDS: DULoxetine 30 MG CAP PO SCH (08:07)
[2016-05-24] MEDS: VITAMIN B COMPLEX 1 EA CAP/TAB PO SCH ×2 (08:08→20:36)
[2016-05-24] MEDS: CHOLECALCIFEROL VIT D3 1,000 UNITS TAB PO SCH (08:08)
[2016-05-24] MEDS: MULTIVITAMINS 1 EACH TAB PO SCH (08:08)
[2016-05-24] MEDS: CALCIUM CARB W/VIT D 500 MG TAB PO SCH ×3 (08:09→17:40)
[2016-05-24] MEDS: OMEGA-3 FATTY ACIDS 1,000 MG CAP PO SCH ×2 (08:10→17:40)
[2016-05-24] MEDS: ASCORBIC ACID 250 MG TAB PO SCH (09:11)
--- NOTE | 2016-05-24 14:10 | SOAPPROG ---
[facility] Progress Note Assessment/Plan: Assessment: REcurrent a-fib. Not able to anticoagulate at this time and maybe never. Plan:Ask [facility] to evaluate rhythm. Consider SNF on Thursday. 05/24/16 14:17 Subjective: Feels very weak. Needs 2 person transfer. Objective: Vital Signs Temp Pulse Resp BP Pulse Ox 36.8 C 91 16 130/90 H 94 05/24/16 12:00 05/24/16 12:00 05/24/16 12:00 05/24/16 12:00 05/24/16 12:00 Laboratory Results 05/23/16 04:22 05/23/16 04:22 05/23/16 05/24/16 05/25/16 05:59 05:59 05:59 Intake Total 1200 200 Output Total 500 850 Balance 700 -650 PT 22.4 SEC (12.0-15.0) H 05/21/16 13:23 INR 1.96 (0.83-1.16) H 05/21/16 13:23 Developed a-fib with controlled ventricular response this morning. She is not able to take anticoagulant due to intracranial bleed and probable [employer] vascular amyloid. ICD10 Worksheet Patient Problems: Problems Problem Status Onset Weakness Acute Chest discomfort Acute Dehydration Acute Elevated troponin Acute Osteoarthritis Acute Sciatica Acute Vomiting Acute
[2016-05-24] MEDS: ATORVASTATIN CALCIUM 20 MG TAB PO SCH (17:40)
[2016-05-25] MEDS: ACETAMINOPHEN 325 MG TAB PO PRN ×2 (03:11→19:34)
[2016-05-25] MEDS: PROPAFENONE HCL 150 MG TAB PO SCH ×3 (09:20→17:44)
[2016-05-25] MEDS: FAMOTIDINE 20 MG TAB PO SCH ×2 (09:23→19:34)
[2016-05-25] MEDS: ASCORBIC ACID 250 MG TAB PO SCH (09:23)
[2016-05-25] MEDS: DULoxetine 30 MG CAP PO SCH (09:23)
[2016-05-25] MEDS: MULTIVITAMINS 1 EACH TAB PO SCH (09:24)
[2016-05-25] MEDS: CHOLECALCIFEROL VIT D3 1,000 UNITS TAB PO SCH (09:25)
[2016-05-25] MEDS: PRESERVISION AREDS2 FORMULA EYE VIT 1 EACH PO SCH (09:25)
[2016-05-25] MEDS: VITAMIN B COMPLEX 1 EA CAP/TAB PO SCH ×2 (09:26→19:33)
[2016-05-25] MEDS: SENNOSIDES/DOCUSATE SODIUM TAB PO SCH ×2 (09:26→19:50)
[2016-05-25] MEDS: OMEGA-3 FATTY ACIDS 1,000 MG CAP PO SCH ×2 (09:27→17:41)
[2016-05-25] MEDS: CALCIUM CARB W/VIT D 500 MG TAB PO SCH ×3 (09:27→17:41)
--- NOTE | 2016-05-25 10:35 | GCON ---
CARDIOLOGY CONSULTATION DATE OF CONSULTATION: 05/25/2016 INDICATION: Atrial fibrillation, history of Coumadin use, now with intracranial bleed. HISTORY OF PRESENT ILLNESS: The patient is a very pleasant 75-year-old female, followed as an outpa tient by Dr. Ish Flores. She has a cardiovascular history significant for paroxysmal atrial fibr illation which dates back to the s when she lived in [place]. Her CHADS/VASc score is 3 (age greater than 75 years, female gender). She has been on Rythmol for rhythm control and systemic anticoagula tion in the form of Coumadin now for many years with really no difficulties. Occasionally, she has symptoms of very mild palpitations. She will use an extra Rythmol infrequently when this occurs. S he has never had a history of heart disease either structural or ischemic in nature nor has she had a history of syncope or presyncope. She was admitted to [facility] on May 18. At that point, she was continuing to have back pain thought to be related to sciatica. She underwent a lumbar spine steroid injection o n May 19. On May 20, she developed confusion. A head CT demonstrated a frontal parietal hemorrhage and subsequently an MRI was performed on May 21. This demonstrated findings consist ent with an acute/subacute hemorrhage in the right frontal lobe. There was also evidence of other m ore chronic appearing bleeds. As a result, Neurosurgery was consulted and it was thought that her c linical presentation and radiographic findings were consistent with cerebral vascular amyloid. in g systemic anticoagulation in this state is thought to be contraindicated. Today she states she fee ls well. She is working with physical therapy. She has no cardiovascular or neurologic complaints at the present time. PAST MEDICAL HISTORY: 1. Paroxysmal atrial fibrillation associated with a CHADS/VASc score of 3. 2. Obesity. 3. History of sciatica. 4. Hip pain. 5. GERD. 6. Macular degeneration. 7. Hearing loss. 8. Hyperparathyroidism. 9. Vertigo. 10. Hyperlipidemia. 11. History of hematuria. 12. Hypoxemia. HOME MEDICATIONS: These are detailed on the chart and not repeated here. They do include cardiovas cular medications in the form of atorvastatin 20 mg daily, Coumadin 5 mg daily and Rythmol 225 mg 3 times a day. ALLERGIES: To Ceftin and tetanus. PAST SURGICAL HISTORY: She has had a previous appendectomy, cholecystectomy, and apparently fistula repair. FAMILY HISTORY: At this point, is noncontributory. SOCIAL HISTORY: She is and accompanied by her . She used to smoke, although has not smoked in 30 years. She has 2 children. REVIEW OF SYSTEMS: A full 10-point review of systems was performed and was otherwise negative. DATABASE: She had an electrocardiogram on May 18, 2016. This demonstrates atrial fibrillation with an isolated PVC. Her resting heart rate is 95 beats per minute. Previous neurologic imaging has been described. Today, her sodium is 131, potassium 4.4, BUN 6, creatinine 0.8. Calcium 9.2. INR on May 21 wa s 1.96. White blood cell count 8.8, hematocrit 29.6, platelet count 157,000. In reviewing [facility], there is an electrocardiogram from May 09 demonstrating atrial fibri llation and one from August 24, 2009 demonstrating sinus rhythm. IMPRESSION: The patient is a pleasant 75-year-old female with a history of paroxysmal atrial fibril lation with a CHADS/VASc score of 3. She is in the hospital currently with weakness and back pain. An MRI of the head demonstrates evidence of amyloid angiopathy associated with both acute and subac carolann intracranial hemorrhage. At this point, systemic anticoagulation is contraindicated. Fortunate ly, her annual risk for stroke is about 3%; therefore, not extremely high. Certainly, her short-ter m risk for embolic stroke is low. As such, I think that, as Neurosurgery stated, systemic anticoagu lation should be withheld and has been withheld. The question is whether or not we can mitigate her risk for stroke in the future and whether or not the risks associated with that form of mitigation are worth undertaking. There is no data suggesting that more aggressive antiarrhythmic therapy woul d reduce her risk for stroke. Therefore I do not think that from a pharmacologic standpoint signifi cant changes need to be made to her medications. It is unclear to me whether or not she truly has P AF or whether her atrial fibrillation is permanent. Certainly outpatient EKGs would be helpful in d iscerning between those 2 forms of atrial fibrillation. If her atrial fibrillation tends to be more permanent we can discontinue Rythmol and simply use rate controlling agents. She and I spoke brief ly about potentially referring her for left atrial appendage ligation with Dr. Sunil Frazier. We can discuss this further as an outpatient. RECOMMENDATIONS: Therefore recommendations at the present time are: 1. Continue withholding Coumadin and all forms of systemic anticoagulation as well as anti-platelet agents as is currently being done. 2. I would like her to follow up with me as an outpatient within the next several weeks. During th ose visits we can discuss whether or not any additional therapeutic options should be considered. 3. Her blood pressure is a little bit elevated today. This should be followed closely. If needed, I would recommend low-dose Coreg be added for additional blood pressure control. 4. As an outpatient, I will have her get an echocardiogram. 5. We will sign off for now. I will see her back in the office as an outpatient. /[id number]/MODL
--- NOTE | 2016-05-25 11:40 | SOAPPROG ---
SOAP Progress Note Assessment/Plan: Assessment: REcurrent a-fib. Not able to anticoagulate at this time and maybe never. Cardiology note appreciated. Hematoma an dpain in L arm. Plan: Doppler L arm to RO DVT. cont with rehab. No change in heart meds at this time. Consider SNF on Thursday. 05/24/16 14:17 05/25/16 11:32 Subjective: Feeling a little better today. Able to transfer with one person assist. No appetite however able to drink ensure. Objective: Vital Signs Temp Pulse Resp BP Pulse Ox 36.4 C 90 16 132/91 H 97 05/25/16 07:14 05/25/16 07:14 05/25/16 07:14 05/25/16 07:14 05/25/16 07:14 Laboratory Results 05/23/16 04:22 05/23/16 04:22 05/24/16 05/25/16 05/26/16 05:59 05:59 05:59 Intake Total 200 300 Output Total 850 1200 300 Balance -650 -900 -300 PT 22.4 SEC (12.0-15.0) H 05/21/16 13:23 INR 1.96 (0.83-1.16) H 05/21/16 13:23 Cor a-fib with controlled vent response. No significant edema in legs. Large are of discoloration in L arm witih some tenderness in medial upper arm. ICD10 Worksheet Patient Problems: Problems Problem Status Onset Weakness Acute Chest discomfort Acute Dehydration Acute Elevated troponin Acute Osteoarthritis Acute Sciatica Acute Vomiting Acute
[2016-05-25] MEDS: ATORVASTATIN CALCIUM 20 MG TAB PO SCH (17:42)
[2016-05-26] MEDS: ACETAMINOPHEN 325 MG TAB PO PRN ×2 (04:01→08:56)
[2016-05-26] MEDS: DULoxetine 30 MG CAP PO SCH (08:56)
[2016-05-26] MEDS: ASCORBIC ACID 250 MG TAB PO SCH (08:56)
[2016-05-26] MEDS: CHOLECALCIFEROL VIT D3 1,000 UNITS TAB PO SCH (08:56)
[2016-05-26] MEDS: VITAMIN B COMPLEX 1 EA CAP/TAB PO SCH (08:56)
[2016-05-26] MEDS: FAMOTIDINE 20 MG TAB PO SCH (08:56)
[2016-05-26] MEDS: MULTIVITAMINS 1 EACH TAB PO SCH (08:56)
[2016-05-26] MEDS: PRESERVISION AREDS2 FORMULA EYE VIT 1 EACH PO SCH (08:56)
[2016-05-26] MEDS: CALCIUM CARB W/VIT D 500 MG TAB PO SCH ×2 (08:56→13:25)
--- NOTE | 2016-05-26 08:58 | SOAPPROG ---
SOAP Progress Note Assessment/Plan: Assessment: Plan: 05/19/16 08:52 acute encephalopathy--improving. Suspect due to HTN, recent steroids (Medrol DosePak) and an extra dose of duloxetine. Continue to follow progress hyponatremia--mild, likely secondary to stress. Gentle IVF's today HTN--likely due to steroids, will increase losartan and add low dose metoprolol BID a fib--normally on coumadin, held for probable HUSSAIN. On lovenox, rate a bit higher today, metoprolol should help left sciatica limiting home function. MRI with complex central canal stenosis and left L3-4, L4-5 NFI--IR consult for hopeful HUSSAIN 05/21/16 09:09 new finding of small right frontal parietal hemorrhage. Will check MRI non- contrast. Neurology consult. Anticoag held except for ASA. Add ST consult labile BP--orthostatic issue this am. BP meds on PRN given lability a fib--off anticoag now given CVA--await further neurology input on this matter Left leg sciatica--pain better after HUSSAIN hyponatremia--improving--continue IVF's 05/22/16 09:15 frontal bleed--appreciate neurology consult. Amyloid angiopathy and contraindication for anticoagulation was discussed in detail with patient. We discussed potential interventional cardiology EP keke in the future. She really need marked improvement in strength before much could be considered. 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 [facility] is suspected preference 05/26/16 08:57 CVA--avoid anticoag a fib--rate control goal lt sciatica--PT and meds, prior HUSSAIN hyponatremia--recheck today anemia-recheck for stability weakness--SNF--today if bed available and insurance approves Subjective: She feels clearer and gradually stronger. Left shoulder is sore from a slide and fall over the weekend. Left sciatica is moderately uncomfortable. No SOB, No CP. LUE hematoma is painful Objective: Vital Signs Temp Pulse Resp BP Pulse Ox 36.6 C 82 18 151/74 H 99 05/26/16 07:11 05/26/16 07:11 05/26/16 07:11 05/26/16 07:11 05/26/16 07:11 Laboratory Results 05/23/16 04:22 05/23/16 04:22 05/25/16 05/26/16 05/27/16 05:59 05:59 05:59 Intake Total 300 50 Output Total 1200 300 Balance -900 -250 PT 22.4 SEC (12.0-15.0) H 05/21/16 13:23 INR 1.96 (0.83-1.16) H 05/21/16 13:23 Gen: NAD, brighter, quicker Lungs: CTAB Heart: irreg irreg Abd + sb soft LE's GIO's no edema LUE moderate ecchymosis ICD10 Worksheet Patient Problems: Problems Problem Status Onset Weakness Acute Chest discomfort Acute Dehydration Acute Elevated troponin Acute Osteoarthritis Acute Sciatica Acute Vomiting Acute
[2016-05-26] MEDS: ERGOCALCIFEROL 50,000 I.UNIT CAP PO SCH (09:05)
[2016-05-26] MEDS: OMEGA-3 FATTY ACIDS 1,000 MG CAP PO SCH (09:06)
[2016-05-26] MEDS: SENNOSIDES/DOCUSATE SODIUM TAB PO SCH (09:06)
[2016-05-26] MEDS: PROPAFENONE HCL 150 MG TAB PO SCH ×2 (10:28→13:25)
--- NOTE | 2016-05-26 10:29 | PDIAF ---
- Diagnosis Diagnosis: left sciatica, right frontal/parietal hemorrhage,weakness afib Code Status: Full Code - Medication Management Discharge Medications: Medications to Continue on Transfer Vitamin B Complex [Vitamin B Complex (OTC)] 1 tab PO BID 07/16/11 [Last Taken ] Herbals/Supplements -Info Only 1 ea PO AD 07/18/15 [Last Taken Unknown] Acetaminophen [Tylenol 325mg (*)] 650 mg PO Q6 05/09/16 [Last Taken 05/17/16] celeCOXIB [CeleBREX] 100 mg PO DAILY 05/18/16 [Last Taken 05/17/16] traMADol [Ultram 50 mg (*)] 50 mg PO Q6HRS 05/18/16 [Last Taken 05/17/16] Acetaminophen [Tylenol 325mg (*)] 650 mg PO Q4HRS PRN #0 tab 05/26/16 [Last Taken Unknown] Atorvastatin Calcium [Lipitor 20 mg (*)] 20 mg PO DAILY@18 #0 tab 05/26/16 [ Last Taken Unknown] C/E/Zn/Cu/OM3/DHA/EPA/LUT/ZEAX [Preservision Areds 2 Softgel] 1 each PO DAILY # 0 cap 05/26/16 [Last Taken Unknown] Calcium Carb W/Vit D [Calcium Carb W/Vit D 500/200 (*)] 500 mg PO TIDMEAL #0 tab 05/26/16 [Last Taken Unknown] Carboxymethylcellulose 1% [Refresh Celluvisc (*)] 2 drop EACHEYE DAILY PRN #0 droperette 05/26/16 [Last Taken Unknown] Cholecalciferol Vit D3 [Vitamin D3 (*)] 1,000 units PO DAILY #0 tab 05/26/16 [ Last Taken Unknown] DULoxetine [Cymbalta 30 MG (*)] 30 mg PO DAILY #0 cap 05/26/16 [Last Taken Unknown] Ergocalciferol [Vitamin D2 (*)] 50,000 i.unit PO MO #0 cap 05/26/16 [Last Taken Unknown] Famotidine [Pepcid 20 MG (*)] 20 mg PO BID #0 tab 05/26/16 [Last Taken Unknown] Multivitamins [Multivitamin (*)] 1 each PO DAILY #0 tab 05/26/16 [Last Taken Unknown] [place]-3 Fatty Acids [Fish Oil 1000 mg (*)] 2,000 mg PO BIDMEAL #0 cap 05/26/16 [ Last Taken Unknown] Ondansetron Odt [Zofran Odt 4 mg (*)] 4 mg PO Q4HRS PRN #0 tab 05/26/16 [Last Taken Unknown] Polyethylene Glycol 3350 [Miralax 17 gm (*)] 17 gm PO DAILY PRN #0 pkt 05/26/16 [Last Taken Unknown] Propafenone HCl [Rythmol 150mg (*)] 225 mg PO TIDMEAL #0 tab 05/26/16 [Last Taken Unknown] Sennosides/Docusate Sodium [Senokot-S] 1 - 2 tab PO BID #0 tab 05/26/16 [Last Taken Unknown] Loan Inspector Antibiotics: n/a Discharge Medications: Refer to the Discharge Home Medication list for PRN reason. PICC Care - Routine: N/A - Orders Services needed: Physical Therapy, Occupational Therapy, Speech Language Pathologist Oxygen: 0-2 as needed for saturations >90% Diet Recommendation: fluid restriction (use comment for amount) (1200 ml, no free water ) Diet Texture: Regular Texture Diet Tube feeding: n/a Weigh Patient: weekly Das: No Villa Stockings Discontinue Date: continuous Activity/Weight Bearing Restrictions: full as tolerated Equipment: walker - Labs/Radiology BMP Date: 06/02/16 (pls fax to [phone]) CBC Date: 06/02/16 - Follow Up Care Current Providers and Referrals: Unknown,Unknown [Unknown] - As per Instructions
[2016-05-26 10:40] LABS: % IMMATURE GRANULYOCYTES 0.3 % (0.0-1.1); ABSOLUTE IMMATURE GRANULOCYTES 0.03 10^3/uL (0.00-0.10); ADD DIFF? NO; ADD MORPH? NO; ADD SCAN? NO; ATYPICAL LYMPHOCYTE FLAG 10 (0-99); FRAGMENT RBC FLAG 0 (0-99); HEMATOCRIT 30.1 % (38.0-47.0); HEMOGLOBIN 9.9 g/dL (12.6-16.3); LEFT SHIFT FLG 0 (0-99); LIPEMIA HEMOLYSIS FLAG 80 (0-99); MEAN CELL HEMOGLOBIN CONCENTR. 32.9 g/dL (32.4-36.7); MEAN CELL VOLUME 94.4 fL (81.5-99.8); MEAN PLATELET VOLUME 9.9 fL (8.7-11.7); PLATELET CLUMPS FLAG 0 (0-99); PLATELET COUNT 209 10^3/uL (150-400); RED BLOOD CELL COUNT 3.19 10^6/uL (4.18-5.33); RED CELL DISTRIBUTION WIDTH 14.7 % (11.5-15.2)
[2016-05-26 11:06] LABS: ANION GAP 7 mEq/L (8-16); CALCIUM 9.6 mg/dL (8.5-10.4); CARBON DIOXIDE 25 mEq/l (22-31); CHLORIDE 100 mEq/L (97-110); CREATININE 0.8 mg/dL (0.6-1.0); GLOMERULAR FILTRATION RATE > 60; GLUCOSE 121 mg/dL (70-100); POTASSIUM 4.2 mEq/L (3.5-5.2); SODIUM 132 mEq/L (134-144)
--- NOTE | 2016-05-26 11:19 | GDS ---
Date of [facility] is [facility]. REASON FOR ADMISSION: Weakness, left leg sciatica. DISCHARGE DIAGNOSES: 1. Right frontal/parietal small hemorrhage. 2. New diagnosis of probable amyloid angiopathy. 3. Atrial fibrillation. 4. Chronic left sciatica, improved after epidural steroid injection. 5. Global weakness. 6. Labile blood pressure. HOSPITAL COURSE: Patient was admitted through the ER due to increasing weakness given left leg scia kahlil. She had some mental status fluctuations over the first 24 hours that she was there. A CT sca n of her head was ordered, which identified an acute hemorrhage albeit small in size in the right fr ontal parietal region. MRI was ordered which identified acute/subacute bleed, as well as a history or suggestion of prior bleeds. Neurology consultation was obtained with Dr. Kimball, who suspects that the patient has underlying amyloid angiopathy. No anticoagulation has been instructed given her cu rrent bleeding picture and what looks like a history of prior small bleeds. Cardiology consultation was obtained during the hospital stay. Outpatient plans for an echocardiogram and then further wor kup regarding her atrial fibrillation has been planned. She has a CHADS score of 3 with a 3% annual ized risk of stroke at this current point. Her blood pressure has been fairly labile [facility]. Initial numbers were quite high. At this point, she has stabilized in the range betwee n 110s and 150s systolic. Her weakness remains to be a significant issue, and for this reason she w ill be transferred to a [facility] facility. She will be discharged today, May 26, and will return to be seen in the office as she makes improvement. /[id number]/MODL
[2016-05-26 12:34] VITALS: BP 118/86; PULSE 110; RESP 20; TEMP 97.6; O2SAT 98
== END 2016-05-26 15:20 | DRG 552 ==
LOC: EDUNIT# → F3E 10:18 → F3N 05-22 16:18
PROVIDERS: ADMIT Internal Medicine; ATTEND Internal Medicine
PROC: 3E0S33Z Introduction of Anti-inflammatory into Epidural Space, Percutaneous Approach (ICD-10-PCS; principal; 2016-05-19)
DX: M54.42 Lumbago with sciatica, left side (principal); E87.1 Hypo-osmolality and hyponatremia; E85.4 Organ-limited amyloidosis; I68.0 Cerebral amyloid angiopathy; I48.0 Paroxysmal atrial fibrillation; Z79.01 Long term (current) use of anticoagulants; Z87.891 Personal history of nicotine dependence; K21.9 Gastro-esophageal reflux disease without esophagitis; K59.00 Constipation, unspecified; E66.9 Obesity, unspecified; H35.30 Unspecified macular degeneration; E21.3 Hyperparathyroidism, unspecified
CPT/HCPCS: 92507-GN; 92523-GN; 96374; 97110-GP; 97116-GP; 97162-GP; 97166-GO; 97168-GO; 97530-GO; 97530-GP; 97535-GO; G8978-GP-CL; G8979-GP-CJ; G8987-GO-CK; G8988-GO-CI; G9168-GN-CJ; G9169-GN-CI; J1650; J2405; J3301; J3490; Q9967

== ENCOUNTER 2016-09-11 09:34 | Inpatient (IN) | payer OTHER ==
[2016-09-11] MEDS ORDERED: BENZOCAINE UNIT DOSE SPRAY HURRICAINE MM ONE (09:36)
[2016-09-11] MEDS ORDERED: DIAZEPAM 5 MG TAB PO ONE (09:36)
[2016-09-11] MEDS ORDERED: ASPIRIN EC 325 MG TAB PO ONE (09:36)
[2016-09-11] MEDS ORDERED: diphenhydrAMINE 25 MG CAP PO ONE (09:36)
[2016-09-11] MEDS ORDERED: NS 1,000 ML IV ONE ×2 (09:36)
[2016-09-11] MEDS ORDERED: MIDAZOLAM 2 MG/2 ML VIAL IVP ONE (09:36)
[2016-09-11] MEDS ORDERED: FAMOTIDINE 20 MG TAB PO ONE (09:36)
[2016-09-11] MEDS ORDERED: fentaNYL 100 MCG/2 ML INJ IVP ONE (09:36)
[2016-09-11 10:29] LABS: % IMMATURE GRANULYOCYTES 0.2 % (0.0-1.1); ABSOLUTE IMMATURE GRANULOCYTES 0.01 10^3/uL (0.00-0.10); ADD DIFF? NO; ADD MORPH? NO; ADD SCAN? NO; ATYPICAL LYMPHOCYTE FLAG 30 (0-99); FRAGMENT RBC FLAG 0 (0-99); HEMATOCRIT 35.9 % (38.0-47.0); HEMOGLOBIN 11.9 g/dL (12.6-16.3); LEFT SHIFT FLG 0 (0-99); LIPEMIA HEMOLYSIS FLAG 80 (0-99); MEAN CELL HEMOGLOBIN 31.4 pg (27.9-34.1); MEAN CELL HEMOGLOBIN CONCENTR. 33.1 g/dL (32.4-36.7); MEAN CELL VOLUME 94.7 fL (81.5-99.8); MEAN PLATELET VOLUME 10.1 fL (8.7-11.7); PLATELET CLUMPS FLAG 0 (0-99); PLATELET COUNT 188 10^3/uL (150-400); RED BLOOD CELL COUNT 3.79 10^6/uL (4.18-5.33); RED CELL DISTRIBUTION WIDTH 12.9 % (11.5-15.2)
[2016-09-11 10:43] LABS: INR 1.04 (0.83-1.16); PROTIME(PATIENT) 13.5 SEC (12.0-15.0)
[2016-09-11] MEDS ORDERED: MIDAZOLAM 2 MG/2 ML VIAL ONE ×2 (10:45→11:16)
[2016-09-11] MEDS ORDERED: fentaNYL 100 MCG/2 ML INJ ONE ×2 (10:45→11:16)
[2016-09-11 10:53] LABS: ANION GAP 9 mEq/L (8-16); CALCIUM 9.9 mg/dL (8.5-10.4); CARBON DIOXIDE 23 mEq/l (22-31); CHLORIDE 108 mEq/L (97-110); CHOLESTEROL 140 mg/dL (140-220); CHOLESTEROL/HDL RATIO 1.92 RATIO (1.00-4.44); GLOMERULAR FILTRATION RATE 54; GLUCOSE 95 mg/dL (70-100); HIGH DENSITY LIPOPROTEIN 73 mg/dL (40-85); LDL/HDL RATIO 0.62 RATIO (1.00-3.22); LOW DENSITY LIPOPROTEIN 45 mg/dL (80-100); NON-HIGH DENSITY LIPOPROTEIN 67 mg/dL (90-129); POTASSIUM 4.2 mEq/L (3.5-5.2); SODIUM 140 mEq/L (134-144); TRIGLYCERIDE 113 mg/dL (35-135); VERY LOW DENSITY LIPOPROTEINS 22 mg/dL (8-25)
[2016-09-11] MEDS ORDERED: LIDOCAINE 1% 300 MG/30 ML SDV ONE (11:15)
[2016-09-11] MEDS ORDERED: HEPARIN 10,000 UNIT/10 ML MDV ONE (11:16)
[2016-09-11] MEDS ORDERED: IOPAMIDOL (ISOVUE-370) 150 ML BTL IV ONE (11:17)
[2016-09-11] MEDS ORDERED: VERAPAMIL 5 MG/2 ML VIAL ONE (11:17)
--- NOTE | 2016-09-11 13:58 | CPIP ---
[f rep st] INVASIVE CARDIAC PROCEDURE DATE OF PROCEDURE: 09/11/2016 PROCEDURE PERFORMED: 1. Selective coronary angiography. 2. Left heart catheterization. 3. Left ventriculogram. 4. TR band arteriotomy approach, right radial approach. COMPLICATIONS: None. INDICATIONS/APPROPRIATE USE CRITERIA: The patient is slated for a left atrial appendage ablation un naldo the care of Dr. Frazier tomorrow. I was asked to see the patient for preoperative consultation fo r cardiac catheterization to rule out obstructive coronary disease prior to heart surgery. PROCEDURE IN DETAIL: After informed consent was obtained and n.p.o. status was confirmed, the regio n of the right wrist was cleaned, prepped, and draped in sterile fashion. Approximately 3 cc of 1% lidocaine were utilized for local anesthesia. A modified plethysmography trace assisted Shadi test was normal, documenting dual arterial supply to the right index finger prior to the procedure. The 5-Vietnamese sheath was established using modified Seldinger technique. The patient underwent the previ ously mentioned diagnostic procedures with the use of JR4 and L4 curve coronary catheters, as well a s a 5-Vietnamese pigtail catheter. Standard wire exchange technique was utilized for all catheter excha nges. The right coronary artery is dominant, giving rise to posterior descending and 2 posterolateral vent ricular branches. It is at least 4 mm in size proximally and has JOLLY-3 flow to the distal vessel. No evidence of flow-limiting obstruction, dissection or thrombus is identified. The left main coronary is approximately 6 mm in size. It bifurcates quickly into an LAD and circumf harshad system. The LAD is smooth and normal in size proximally at approximately 3.5 mm. It gives rise to a fairly prominent diagonal vessel and, at its distal half is somewhat tortuous in appearance an d is relatively small and tortuous, as I mentioned. Again, no evidence of flow-limiting obstruction , dissection or thrombus is identified. The left circumflex vessel gives rise to an obtuse marginal vessel and continues as in the posterior AV groove and is not noted to have obstruction, dissection, or thrombus. No flow-limiting obstruct ion is identified. The patient underwent left heart catheterization, demonstrating elevated left ventricular end-diasto lic pressure, measuring 21 mmHg. The patient underwent left ventriculogram in the CORDERO projection, d emonstrating mildly impaired left ventricular systolic function. Ejection fraction is approximately 45% to 50% with global hypokinesis. 1+ mitral regurgitation is noted. Visualized portion of the t horacic aorta reveals 3 sinuses of Valsalva most consistent with a trileaflet aortic valve. There i s no evidence of debra aortic aneurysm or dissection on the basis of the LV g. There are luminal ir regularities within the descending portion of the thoracic aorta that are consistent with underlying atherosclerosis. IMPRESSION: The patient has no evidence of significant or flow-limiting coronary artery disease on the basis of carefully performed selective coronary angiography. The patient does have elevated lef t ventricular end-diastolic pressure, as measured at 21 mmHg, as well as mildly impaired left ventri cular systolic function. Ejection fraction is 45% to 50% with global hypokinesis. Of note, is that the patient is in atrial fibrillation with relatively rapid ventricular response intermittently, as high as 110 beats per minute. In addition, the patient has systolic hypertension while at rest and sedated on the factory laborer table with pressures measured as high as 205/99. PLAN: The patient should be able to proceed with the previously planned procedure tomorrow. Long-t erm, I think the patient should have better rate control and control of her systemic hypertension to help reduce her risk of a recurrent stroke, as well as reduce the risk of further decline in LV sys tolic function. /[id number]/MODL
--- NOTE | 2016-09-11 15:39 | PDGENHP ---
History and Physical - Chief Complaint preop ligation of left atrial appendage - History of Present Illness 75 yo female with permanent atrial fibrillation and a hemorrhagic stroke on Coumadin, referred for exclusion of left atrial appendage to mitigate stroke risk off of anticoagulants. Admitted in advance of scheduled surgery to complete risk stratification and verify candidacy for a thoracoscopic approach. History Information - Allergies/Home Medication List Allergies/Adverse Reactions: oxycodone Allergy (Verified 08/29/16 13:24) Unknown Home Medications: Vitamin B Complex [Vitamin B Complex (OTC)] 1 tab PO BID 07/16/11 [Last Taken ] Herbals/Supplements -Info Only 1 ea PO AD 07/18/15 [Last Taken Unknown] celeCOXIB [CeleBREX] 100 mg PO DAILY 05/18/16 [Last Taken 09/10/16] Ascorbic Acid [Vitamin C 500 mg (*)] 500 mg PO DAILY 09/11/16 [Last Taken Unknown] Atorvastatin Calcium [Lipitor 20 mg (*)] 20 mg PO HS 09/11/16 [Last Taken ] DULoxetine [Cymbalta 30 MG (*)] 60 mg PO HS 09/11/16 [Last Taken 09/10/16] Diltiazem HCl [Cartia Xt] 120 mg PO DAILY 09/11/16 [Last Taken 09/10/16] [place]-3 Fatty Acids [Fish Oil 1000 mg (*)] 1,000 mg PO DAILY 09/11/16 [Last Taken Unknown] Omeprazole [Prilosec 20 mg] 20 mg PO DAILY 09/11/16 [Last Taken 09/10/16] I have personally reviewed and updated: medical history, social history, surgical history - Past Medical History atrial fibrillation, CVA (Apr 2016; residual LLE weakness necessitating a walker for ambulation), hypertension Additional medical history: obesity, BMI > 35 - Social History Smoking Status: Former smoker Physical Exam Temp Pulse Resp BP Pulse Ox 36.4 C 79 14 138/76 H 92 09/11/16 15:21 09/11/16 15:21 09/11/16 15:21 09/11/16 15:21 09/11/16 15:21 Lab Data & Imaging Review 09/11/16 10:15 09/11/16 10:15 WBC 5.75 10^3/uL (3.80-9.50) 09/11/16 10:15 RBC 3.79 10^6/uL (4.18-5.33) L 09/11/16 10:15 Hgb 11.9 g/dL (12.6-16.3) L 09/11/16 10:15 Hct 35.9 % (38.0-47.0) L 09/11/16 10:15 MCV 94.7 fL (81.5-99.8) 09/11/16 10:15 MCH 31.4 pg (27.9-34.1) 09/11/16 10:15 MCHC 33.1 g/dL (32.4-36.7) 09/11/16 10:15 RDW 12.9 % (11.5-15.2) 09/11/16 10:15 Plt Count 188 10^3/uL (150-400) 09/11/16 10:15 MPV 10.1 fL (8.7-11.7) 09/11/16 10:15 Neut % (Auto) 70.4 % (39.3-74.2) 09/11/16 10:15 Lymph % (Auto) 18.8 % (15.0-45.0) 09/11/16 10:15 [place] % (Auto) 8.5 % (4.5-13.0) 09/11/16 10:15 Eos % (Auto) 1.9 % (0.6-7.6) 09/11/16 10:15 Baso % (Auto) 0.2 % (0.3-1.7) L 09/11/16 10:15 Nucleat RBC Rel Count 0.0 % (0.0-0.2) 09/11/16 10:15 Absolute Neuts (auto) 4.05 10^3/uL (1.70-6.50) 09/11/16 10:15 Absolute Lymphs (auto) 1.08 10^3/uL (1.00-3.00) 09/11/16 10:15 Absolute Monos (auto) 0.49 10^3/uL (0.30-0.80) 09/11/16 10:15 Absolute Eos (auto) 0.11 10^3/uL (0.03-0.40) 09/11/16 10:15 Absolute Basos (auto) 0.01 10^3/uL (0.02-0.10) L 09/11/16 10:15 Absolute Nucleated RBC 0.00 10^3/uL (0-0.01) 09/11/16 10:15 Immature Gran % 0.2 % (0.0-1.1) 09/11/16 10:15 Immature Gran # 0.01 10^3/uL (0.00-0.10) 09/11/16 10:15 PT 13.5 SEC (12.0-15.0) 09/11/16 10:15 INR 1.04 (0.83-1.16) 09/11/16 10:15 Sodium 140 mEq/L (134-144) 09/11/16 10:15 Potassium 4.2 mEq/L (3.5-5.2) 09/11/16 10:15 Chloride 108 mEq/L (97-110) 09/11/16 10:15 Carbon Dioxide 23 mEq/l (22-31) 09/11/16 10:15 Anion Gap 9 mEq/L (8-16) 09/11/16 10:15 BUN 16 mg/dL (7-23) 09/11/16 10:15 Creatinine 1.0 mg/dL (0.6-1.0) 09/11/16 10:15 Estimated GFR 54 09/11/16 10:15 Glucose 95 mg/dL (70-100) 09/11/16 10:15 Calcium 9.9 mg/dL (8.5-10.4) 09/11/16 10:15 Magnesium 2.0 mg/dL (1.6-2.3) 09/11/16 10:15 Triglycerides 113 mg/dL (35-135) 09/11/16 10:15 Cholesterol 140 mg/dL (140-220) 09/11/16 10:15 Cholesterol Risk Factr 0.4 (0.2-1.0) 09/11/16 10:15 LDL Cholesterol, Calc 45 mg/dL (80-100) L 09/11/16 10:15 LDL Risk Factor 0.4 (0.2-1.0) 09/11/16 10:15 VLDL Cholesterol 22 mg/dL (8-25) 09/11/16 10:15 Non-HDL Cholesterol 67 mg/dL (90-129) L 09/11/16 10:15 HDL Cholesterol 73 mg/dL (40-85) 09/11/16 10:15 LDL/HDL Ratio 0.62 RATIO (1.00-3.22) L 09/11/16 10:15 Cholesterol/HDL Ratio 1.92 RATIO (1.00-4.44) 09/11/16 10:15 Patient ABO/Rh A POSITIVE 09/11/16 10:15 Antibody Screen NEGATIVE 09/11/16 10:15 Imaging Review: C: no obstructive CAD Assessment & Plan Assessment: Coronary artery disease (CAD) excluded (Acute) HTN (hypertension) (Chronic) History of CVA with residual deficit (Chronic) Permanent atrial fibrillation (Chronic)
[2016-09-11] MEDS ORDERED: DILTIAZEM 60 MG TAB PO PRN (16:00)
[2016-09-11] MEDS: CALCIUM CARB W/VIT D 500 MG TAB PO SCH (18:06)
[2016-09-11] MEDS ORDERED: CHLORHEXIDINE GLUC HIBICLENS 118 ML BTL TP SCH (21:00)
[2016-09-11] MEDS: VITAMIN B COMPLEX 1 EA CAP/TAB PO SCH (21:04)
[2016-09-11] MEDS: SENNOSIDES/DOCUSATE SODIUM TAB PO SCH (21:04)
[2016-09-11] MEDS: DULoxetine 30 MG CAP PO SCH (21:04)
[2016-09-11] MEDS: ATORVASTATIN CALCIUM 20 MG TAB PO SCH (21:04)
[2016-09-11] MEDS: ACETAMINOPHEN 325 MG TAB PO PRN (22:00)
[2016-09-12 04:49] LABS: ANION GAP 8 mEq/L (8-16); CALCIUM 9.5 mg/dL (8.5-10.4); CARBON DIOXIDE 23 mEq/l (22-31); CHLORIDE 108 mEq/L (97-110); CREATININE 0.9 mg/dL (0.6-1.0); GLOMERULAR FILTRATION RATE > 60; GLUCOSE 92 mg/dL (70-100); SODIUM 139 mEq/L (134-144)
[2016-09-12] MEDS ORDERED: PROTAMINE SULFATE 50 MG/5 ML VIAL IVP ONE (06:04)
[2016-09-12] MEDS ORDERED: CALCIUM CHLORIDE 1 GM/10 ML INJ ONE ×2 (06:04→06:08)
[2016-09-12] MEDS ORDERED: MILRINONE/DEXTROSE/100 ML BAG IV ONE (06:04)
[2016-09-12] MEDS ORDERED: POTASSIUM Cl (KCl) 20 MEQ/50 ML BAG IV ONE (06:04)
[2016-09-12] MEDS ORDERED: niCARdipine/NACL/200 ML BAG IV ONE (06:05)
[2016-09-12] MEDS ORDERED: AMINOCAPROIC ACID 5 GM/20 ML VIAL ONE ×2 (06:05→06:08)
[2016-09-12] MEDS ORDERED: NA BICARBONATE 50 MEQ/50 ML VIAL ONE (06:05)
[2016-09-12] MEDS ORDERED: DOPamine/DEXTROSE/250 ML BAG IV ONE (06:05)
[2016-09-12] MEDS ORDERED: ADENOSINE 6 MG/2 ML VIAL ONE (06:06)
[2016-09-12] MEDS ORDERED: AMIODARONE HCL 150 MG/3 ML VIAL ONE ×2 (06:06→06:08)
[2016-09-12] MEDS ORDERED: HEPARIN 10,000 UNIT/10 ML MDV ONE ×2 (06:07→06:09)
[2016-09-12] MEDS ORDERED: ALBUMIN 5% 250 ML BOTTLE IV ONE (06:07)
[2016-09-12] MEDS ORDERED: ceFAZolin 1 GM VIAL ONE (06:07)
[2016-09-12] MEDS ORDERED: CITRATE DEXTROSE SOLN 500 ML BAG ONE (06:08)
[2016-09-12] MEDS ORDERED: MAGNESIUM SULFATE 1 GM/2 ML VIAL ONE (06:08)
[2016-09-12] MEDS ORDERED: LIDOCAINE 2% 100 MG/5 ML SYR ONE (06:08)
[2016-09-12] MEDS ORDERED: methylPREDNISolone SOD SUCC 1 GM/8 ML VIAL ONE (06:09)
[2016-09-12] MEDS ORDERED: LR 1,000 ML IV ONE (06:18)
[2016-09-12] MEDS ORDERED: LIDOCAINE 1% 2 ML INJ ID PRN (06:18)
[2016-09-12] MEDS ORDERED: BUPIVACAINE/EPI 0.25% 30 ML SDV ONE (06:30)
[2016-09-12] MEDS ORDERED: PHENYLEPHRINE 10 MG/ML SDV ONE (06:48)
[2016-09-12] MEDS ORDERED: LIDOCAINE 2% 5 ML SDV ONE (06:50)
[2016-09-12] MEDS ORDERED: fentaNYL 100 MCG/2 ML INJ ONE ×3 (06:51)
[2016-09-12] MEDS ORDERED: PROPOFOL 200 MG/20 ML VIAL ONE (06:51)
[2016-09-12] MEDS ORDERED: ceFAZolin 2 GM/DEXTROSE 100 ML IV ONE (07:00)
[2016-09-12] MEDS ORDERED: MIDAZOLAM 2 MG/2 ML VIAL IVP ONE (07:06)
--- NOTE | 2016-09-12 07:08 | PDANEPAE ---
ANE History of Present Illness a fib ANE Past Medical History - Cardiovascular History Hx Hypertension: No Hx Arrhythmias: Yes Hx Chest Pain: No Hx Coronary Artery / Peripheral Vascular Disease: No Hx CHF / Valvular Disease: No Hx Palpitations: No - Pulmonary History Hx COPD: No Hx Asthma/Reactive Airway Disease: No Hx Recent Upper Respiratory Infection: No Hx Oxygen in Use at Home: Yes O2 in Use at Home (L/minute): 2L - Neurologic History Hx Cerebrovascular Accident: Yes Hx Seizures: No Hx Dementia: No - Endocrine History Hx Diabetes: No - Renal History Hx Renal Disorders: No - Liver History Hx Hepatic Disorders: No - Neurological & Psychiatric Hx Hx Neurological and Psychiatric Disorders: Yes - Cancer History Hx Cancer: No - Congenital Disorder History Hx Congenital Disorders: No - GI History Hx Gastrointestinal Disorders: Yes - Chronic Pain History Chronic Pain: Yes (arthritis to back) ANE Review of Systems - Exercise capacity Exercise capacity: <4 METS, >=4 METS ANE Patient History - Allergies Allergies/Adverse Reactions: oxycodone Allergy (Verified 08/29/16 13:24) Unknown - Home Medications Home Medications: Vitamin B Complex [Vitamin B Complex (OTC)] 1 tab PO BID 07/16/11 [Last Taken ] Herbals/Supplements -Info Only 1 ea PO AD 07/18/15 [Last Taken Unknown] celeCOXIB [CeleBREX] 100 mg PO DAILY 05/18/16 [Last Taken 09/10/16] Ascorbic Acid [Vitamin C 500 mg (*)] 500 mg PO DAILY 09/11/16 [Last Taken Unknown] Atorvastatin Calcium [Lipitor 20 mg (*)] 20 mg PO HS 09/11/16 [Last Taken ] DULoxetine [Cymbalta 30 MG (*)] 60 mg PO HS 09/11/16 [Last Taken 09/10/16] Diltiazem HCl [Cartia Xt] 120 mg PO DAILY 09/11/16 [Last Taken 09/10/16] [place]-3 Fatty Acids [Fish Oil 1000 mg (*)] 1,000 mg PO DAILY 09/11/16 [Last Taken Unknown] Omeprazole [Prilosec 20 mg] 20 mg PO DAILY 09/11/16 [Last Taken 09/10/16] - NPO status NPO Since - Liquids (Date): 09/12/16 NPO Since - Liquids (Time): 00:00 NPO Since - Solids (Date): 09/12/16 NPO Since - Solids (Time): 00:00 - Smoking Hx Smoking Status: Former smoker - Family Anes Hx Family Hx Anesthesia Complications: none ANE Labs/Vital Signs - Labs Result Diagrams: 09/11/16 10:15 09/12/16 03:51 - Vital Signs Blood Pressure: 114/94 Heart Rate: 82 Respiratory Rate: 12 O2 Sat (%): 94 Height: 168 cm Weight: 106.6 kg ANE Physical Exam - Airway Neck exam: FROM Mallampati Score: Class 2 Mouth exam: normal dental/mouth exam - Pulmonary Pulmonary: no respiratory distress - Cardiovascular Cardiovascular: irregularly irregular - ASA Status ASA Status: III ANE Anesthesia Plan Anesthesia Plan: general endotracheal anesthesia Lines/Monitors: arterial line Specialized Airway: double lumen tube
[2016-09-12] MEDS ORDERED: MIDAZOLAM 2 MG/2 ML VIAL ONE (07:11)
--- NOTE | 2016-09-12 07:26 | PDHPUP ---
History & Physical Update H&P update statement: This history and physical update is based on an assessment of the patient which was completed after admission or registration (within 24 hours), but prior to the surgery/procedure. H&P update: H&P reviewed & patient examined, no change in patient's condition since H&P completed
[2016-09-12] MEDS ORDERED: ROCURONIUM 100 MG/10 ML VIAL ONE (07:27)
[2016-09-12] MEDS ORDERED: METOPROLOL TARTRATE 5 MG/5 ML INJ ONE (07:57)
[2016-09-12] MEDS ORDERED: ONDANSETRON 4 MG/2 ML VIAL ONE (09:05)
[2016-09-12] MEDS ORDERED: SUGAMMADEX SODIUM 200 MG/2 ML VIAL IVP ONE (09:05)
[2016-09-12] MEDS: SENNOSIDES/DOCUSATE SODIUM TAB PO SCH ×2 (10:06→21:07)
[2016-09-12] MEDS: VITAMIN B COMPLEX 1 EA CAP/TAB PO SCH ×2 (10:06→21:06)
[2016-09-12] MEDS: CALCIUM CARB W/VIT D 500 MG TAB PO SCH ×3 (10:06→18:37)
[2016-09-12] MEDS ORDERED: POLYETHYLENE GLYCOL 3350 17 GM PKT PO PRN (10:07)
[2016-09-12] MEDS ORDERED: HYDROCODONE/APAP 5/325 TAB PO PRN (10:07)
[2016-09-12] MEDS ORDERED: LACTULOSE 20 GM/30 ML UDCUP PO PRN (10:07)
[2016-09-12] MEDS ORDERED: BISACODYL 10 MG SUPP PR PRN (10:07)
[2016-09-12] MEDS ORDERED: MAGNESIUM HYDROXIDE 30 ML UDCUP PO PRN (10:07)
[2016-09-12] MEDS ORDERED: LR 500 ML IV PRN (10:16)
[2016-09-12] MEDS ORDERED: fentaNYL 100 MCG/2 ML INJ IVP PRN (10:16)
[2016-09-12] MEDS ORDERED: ALBUTEROL 3 ML DEYVIAL IH PRN (10:16)
[2016-09-12] MEDS ORDERED: NALOXONE HCL 0.4 MG/ML INJ IVP PRN (10:16)
[2016-09-12] MEDS ORDERED: ONDANSETRON 4 MG/2 ML VIAL IVP PRN (10:16)
--- NOTE | 2016-09-12 10:16 | POSTANESTH ---
Post Anesthetic Evaluation Cardiovascular Status: Normal, Stable Respiratory Status: Normal, Stable Level of Consciousness/Mental Status: Can Participate in Eval Pain Control: Adequate, Prn Tx Ordered Nausea/Vomiting Control: Adequate, Prn Tx Ordered Complications Possibly Related to Anesthesia: None Noted
--- NOTE | 2016-09-12 10:17 | POSTOPPROG ---
Post Op Note Date of Operation: 09/12/16 Surgeon: Sunil Frazier Lie Detector Operator: Alex Anesthesiologist: Mohinder Anesthesia: GET(General Endotracheal) Pre-op Diagnosis: AF w stroke Procedure: Left thoracoscopic Atriclip MARTI Inf/Abcess present in the surg proc area at time of surgery?: No EBL: Minimal Drains: Other (1 josh)
[2016-09-12] MEDS ORDERED: DILTIAZEM 30 MG TAB PO PRN (11:00)
--- NOTE | 2016-09-12 11:51 | GOP ---
[f rep st] OPERATIVE REPORT DATE OF OPERATION: 09/12/2016 SURGEON: Sunil Frazier DO R D INTERN: Roxanne Johnson PA-C. ANESTHESIOLOGIST: Hernan Vines MD. PREOPERATIVE DIAGNOSIS: Permanent atrial fibrillation with intercerebral bleed on anticoagulants. POSTOPERATIVE DIAGNOSIS: Permanent atrial fibrillation with intercerebral bleed on anticoagulants. PROCEDURE PERFORMED: AtriClip the left thoracoscopic approach to the left atrial appendage. FINDINGS: DESCRIPTION OF PROCEDURE: Patient had an elevated WILLIAM-VASc score and was prescribed anticoagulants for stroke prophylaxis and atrial fibrillation. She experienced an intracranial hemorrhage. For t hat reason, was unable to take further anticoagulants. She was referred for AtriClip application to the left atrial appendage to lessen the stroke risk. Consent was obtained. She was brought to the operating room, intubated with a double-lumen endotracheal tube. Monitoring lines were placed. Sh e was prepped and draped in sterile classical manner. Incisions were placed at 2nd intercostal, 4th intercostal and 6th intercostal spaces with a 10 mm portal placed at 4 and 6 after the lung was dec ompressed. Visualization of the posterior pericardium was identified. The phrenic was identified. We opened the pericardium with a Harmonic Scalpel from the pulmonary artery down to below the left inferior pulmonary vein. A single suture was used to retract the anterior portion of the pericardiu m, brought out through a separate stab wound incision in the anterior chest wall. We then placed a 45 mm AtriClip through the inferior portal, and with gentle manipulation of the appendage were able to place the AtriClip at the base of the atrium which was quite broad-based and not well-defined. E KG showed no changes consistent with circumflex occlusion. We then deployed the device with echo co nfirmation of a flush closure of the left atrium. 0.25% Marcaine was used to infiltrate the interco stal spaces. A single drain was placed through the inferior portal. The wounds were closed. Dress ings were applied. The patient was returned to the recovery room in stable condition. /[id number]/MODL
[2016-09-12] MEDS: traMADol 50 MG TAB PO PRN ×3 (13:29→22:32)
[2016-09-12] MEDS: ceFAZolin 2 GM/DEXTROSE 100 ML IV SCH ×2 (13:42→21:22)
[2016-09-12] MEDS ORDERED: POTASSIUM CL 20 MEQ TAB PO ONE (15:00)
[2016-09-12] MEDS ORDERED: FUROSEMIDE 20 MG/2 ML VIAL IVP ONE (15:00)
[2016-09-12] MEDS ORDERED: KETOROLAC 15 MG/1 ML SDV IVP SCH ×2 (16:00→23:30)
[2016-09-12] MEDS: DULoxetine 30 MG CAP PO SCH (21:05)
[2016-09-12] MEDS: ATORVASTATIN CALCIUM 20 MG TAB PO SCH (21:06)
[2016-09-12] MEDS: ACETAMINOPHEN 325 MG TAB PO PRN (21:14)
[2016-09-12] MEDS: KETOROLAC 15 MG/1 ML SDV IVP SCH (22:31)
[2016-09-13] MEDS: KETOROLAC 15 MG/1 ML SDV IVP SCH ×2 (03:29→06:10)
[2016-09-13 06:29] LABS: % IMMATURE GRANULYOCYTES 0.3 % (0.0-1.1); ABSOLUTE IMMATURE GRANULOCYTES 0.03 10^3/uL (0.00-0.10); ADD DIFF? NO; ADD MORPH? NO; ADD SCAN? NO; ATYPICAL LYMPHOCYTE FLAG 0 (0-99); FRAGMENT RBC FLAG 0 (0-99); HEMOGLOBIN 10.7 g/dL (12.6-16.3); LEFT SHIFT FLG 0 (0-99); LIPEMIA HEMOLYSIS FLAG 80 (0-99); MEAN CELL HEMOGLOBIN 31.3 pg (27.9-34.1); MEAN CELL HEMOGLOBIN CONCENTR. 32.4 g/dL (32.4-36.7); MEAN CELL VOLUME 96.5 fL (81.5-99.8); MEAN PLATELET VOLUME 10.1 fL (8.7-11.7); PLATELET CLUMPS FLAG 0 (0-99); PLATELET COUNT 160 10^3/uL (150-400); RED BLOOD CELL COUNT 3.42 10^6/uL (4.18-5.33); RED CELL DISTRIBUTION WIDTH 13.2 % (11.5-15.2)
[2016-09-13 07:10] LABS: ANION GAP 7 mEq/L (8-16); CALCIUM 9.9 mg/dL (8.5-10.4); CARBON DIOXIDE 27 mEq/l (22-31); CHLORIDE 103 mEq/L (97-110); GLOMERULAR FILTRATION RATE 54; GLUCOSE 105 mg/dL (70-100); POTASSIUM 4.2 mEq/L (3.5-5.2); SODIUM 137 mEq/L (134-144)
--- NOTE | 2016-09-13 07:45 | SOAPPROG ---
SOAP Progress Note Assessment/Plan: Assessment: POD#1 LVATS AtriClip ligation of left atrial appendage Permanent AF with ICH on anticoagulants - MARTI exclusion for mitigation of stroke risk. Extubated in the OR. Stable early postop course. No sig CTOP. Chest tube to be removed today. Plan: Remove chest tube. Dispo - Anticipate home later today or tomorrow. 09/13/16 07:44 Objective: Vital Signs Temp Pulse Resp BP Pulse Ox 36.7 C 104 H 18 106/73 93 09/13/16 05:08 09/13/16 05:08 09/13/16 05:08 09/13/16 05:08 09/13/16 05:08 Laboratory Results 09/13/16 06:15 09/13/16 06:15 09/12/16 09/13/16 09/14/16 05:59 05:59 05:59 Intake Total 1200 1270 Output Total 840 Balance 1200 430 PT 13.5 SEC (12.0-15.0) 09/11/16 10:15 INR 1.04 (0.83-1.16) 09/11/16 10:15 AF w VVR. Sufficient BP to resume CCB. Minimal suppl O2 req. CTOP below removal criteria. CXR-> left basilar atelectasis, tiny apical PTX - likely from hypoexpansion as no assoc air leak. - Pending Discharge Pending Discharge Within 24 Hours: Yes Pending Discharge Date: 09/14/16 Pending Discharge Time: 11:00 Physical Exam - Physical Exam General Appearance: alert, no apparent distress Respiratory: crackles (left base), other (Juan to pleurovac, thin serosang drainage, no tidal, no air leak with vigorous cough. ) Cardiac/Chest: irregularly irregular Abdomen: non-tender, soft Skin: warm/dry Extremities: other (no visible edema) ICD10 Worksheet Patient Problems: Problems Problem Status Onset Coronary artery disease (CAD) excluded Acute HTN (hypertension) Chronic History of CVA with residual deficit Chronic Permanent atrial fibrillation Chronic
[2016-09-13] MEDS: VITAMIN B COMPLEX 1 EA CAP/TAB PO SCH (08:11)
[2016-09-13] MEDS: traMADol 50 MG TAB PO PRN (08:11)
[2016-09-13] MEDS: CALCIUM CARB W/VIT D 500 MG TAB PO SCH (08:11)
[2016-09-13] MEDS ORDERED: OMEGA-3 FATTY ACIDS 1,000 MG CAP PO SCH (09:00)
[2016-09-13] MEDS ORDERED: PRESERVISION AREDS2 FORMULA EYE VIT 1 EACH PO SCH (09:00)
[2016-09-13] MEDS ORDERED: ASCORBIC ACID 500 MG TAB PO SCH (09:00)
[2016-09-13] MEDS ORDERED: CHOLECALCIFEROL VIT D3 1,000 UNITS TAB PO SCH (09:00)
[2016-09-13] MEDS ORDERED: DILTIAZEM CD 120 MG CAP PO SCH (09:00)
[2016-09-13] MEDS ORDERED: MULTIVITAMINS 1 EACH TAB PO SCH (09:00)
[2016-09-13] MEDS ORDERED: SENNOSIDES/DOCUSATE SODIUM TAB PO PRN (09:00)
[2016-09-13 11:17] VITALS: BP 96/64; PULSE 99; RESP 14; TEMP 97.5
--- NOTE | 2016-09-13 12:08 | PDDCSUM ---
Discharge Summary Discharge Summary: DATE OF ADMISSION: 09/11/16 DATE OF DISCHARGE: 09/13/16 DISPOSITION: Home, self-care PRINCIPAL ADMISSION DIAGNOSES: 1. Permanent atrial fibrillation 2. Contraindication to anticoagulation PRINCIPAL DISCHARGE DIAGNOSES: 1. Coronary artery disease excluded. 2. 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 3. Status post thoracoscopic ligation of the left atrial appendage. HISTORY OF PRESENT ILLNESS: 75 yo female with permanent atrial fibrillation and a recent intracranial hemorrhage on Coumadin, believed to have underlying cerebral amyloid angiopathy and thus a permanent contraindication to oral anticoagulation and a relative contraindication to antiplatelet therapy. Referred for thoracoscopic ligation of her left atrial appendage to mitigate stroke risk. Admitted in advance of surgery to assess coronary anatomy and verify candidacy for a minimally invasive approach. PERTINENT PAST MEDICAL HISTORY: Rt frontal lobe hemorrhagic infarct Apr 2016 - residual LLE weakness and generalized fatigue, GERD, sciatica, meralgia paresthetica, primary hyperparathyroidism, tinnitus, depression, hyperlipidemia, labile HTN, nocturnal hypoxemia, chronic nocturnal oxygen. MEDICATIONS ON ADMISSION: Vitamin B complex twice daily, Herbal supplement once daily, Celebrex 100 mg daily, Preservision capsule daily, MVI daily, Vitamin D2 50,000 units daily, Vitamin D3 1,000 units daily, Calcium w Vit D 500/200 TID, Prilosec 20 mg daily , Diltiazem ER 120 mg daily, Vit C 500 mg daily, Fish Oil 1,000 mg daily, Lipitor 20 mg hs, Cymbalta 60 mg hs, Oxygen 2 Lpm hs ALLERGIES/SENSITIVITIES: oxycodone causing diarrhea CONSULTANTS: none PROCEDURES/IMAGIN/15 (Luis): Left heart catheterization with selective coronary angiography and left ventriculogram. Access via right radial artery. Findings: Rt dominant coronary circulation. No angiographic evidence of disease. LVEDP 21. Globally hypokinetic LV with EF 45-50%. 09/12 (Karin): Left video assisted thoracoscopic ligation of the left atrial appendage with a 45 mm AtriClip. ABBREVIATED HOSPITAL COURSE BY ACTIVE PROBLEM LIST: 1. Permanent AF - AVA3TQ1-CCXe score of 5. Rate control with CCB. LHC suggestive of mild LV systolic and diastolic dysfx. More aggressive rate and BP control recommended. Patient loathe to take additional medication due to malaise when "blood pressure less than 100" with prior escalations of medical therapy. Hospital heart rates and BP generally well controlled. Adjustments to medication deferred to cardiology at outpt followup. 2. Status post LVATS LLAA - Uneventful postop course. Extubated in the OR. Chest tube removed on POD#1. Pain controlled with multimodal analgesia. DISCHARGE CLINICAL INFORMATION: Left thoracoscopy port sites CDI, sutured, +Dermabond. HR 80s-100s, AF. SBP 100s-110s. SpO2 > 90% RA. WBC 8.7, Hgb 10.7, HCT 33, Plt 160, Na 137, K 4.2, Cr 1.0 DISCHARGE MEDICATIONS: As on admission with the following NEW prescription: 1. Tramadol 50 mg, 1/2 to 1 tab q 6h prn breakthrough incisional discomfort. FOLLOW UP APPOINTMENTS: 1. CV surgery: with Dr Frazier at [facility] on 09/23 at 1:45 pm. 2. Cardiology: with Dr Gonzalez at [facility] within 3-4 weeks. Appointment to be established during surgical visit. FOLLOW UP TESTING: CXR prior to surgical appointment.
[2016-09-13 12:46] VITALS: O2SAT 92
[2016-09-15] MEDS ORDERED: ERGOCALCIFEROL 50,000 I.UNIT CAP PO SCH (15:15)
== END 2016-09-13 12:57 | disposition home or self-care (01) | DRG 274 ==
LOC: FCATH 09:34 → F2W 12:44 → OBSVTOIN 09-12 10:17
PROVIDERS: ADMIT Internal Medicine Cardiovascular Disease; ATTEND Thoracic Surgery (Cardiothoracic Vascular Surgery)
PROC: B2151ZZ Fluoroscopy of Left Heart using Low Osmolar Contrast (ICD-10-PCS; 2016-09-11)
PROC: 4A023N7 Measurement of Cardiac Sampling and Pressure, Left Heart, Percutaneous Approach (ICD-10-PCS; 2016-09-11)
PROC: B2111ZZ Fluoroscopy of Multiple Coronary Arteries using Low Osmolar Contrast (ICD-10-PCS; 2016-09-11)
PROC: 02L74CK Occlusion of Left Atrial Appendage with Extraluminal Device, Percutaneous Endoscopic Approach (ICD-10-PCS; principal; 2016-09-12)
DX: I48.2 Chronic atrial fibrillation (principal); I51.89 Other ill-defined heart diseases; I42.9 Cardiomyopathy, unspecified; I10 Essential (primary) hypertension; E78.5 Hyperlipidemia, unspecified; R09.02 Hypoxemia; Z86.73 Personal history of transient ischemic attack (TIA), and cerebral infarction without residual deficits; Z99.81 Dependence on supplemental oxygen
CPT/HCPCS: 97161-GP; 97165-GO; C1769; G0378; G8978-GP-CI; G8979-GP-CI; G8980-GP-CI; G8987-GO-CI; G8988-GO-CI; G8989-GO-CI; J0153; J0171; J0282; J0690; J1265; J1644; J1885; J1940; J2001; J2250; J2260; J2370; J2405; J2704; J2720; J2930; J3010; J7060; P9041; Q9967

== ENCOUNTER → 2016-09-23 | Outpatient (CLI) | payer OTHER | LOC: FIMAGING 13:14 → EDSTATUS 13:15 | PROVIDERS: ATTEND Physician Assistant Surgical | DX: J90 Pleural effusion, not elsewhere classified (principal); Z98.890 Other specified postprocedural states ==

== ENCOUNTER → 2016-09-25 | Outpatient (CLI) | payer OTHER ==
[~2016-09-25] MED LIST: LIDOCAINE 1% 300 MG/30 ML SDV ONE
== END ==
LOC: FIMAGING 11:52
PROVIDERS: ATTEND Thoracic Surgery (Cardiothoracic Vascular Surgery)
PROC: 0W9B3ZZ Drainage of Left Pleural Cavity, Percutaneous Approach (ICD-10-PCS; principal; 2016-09-25)
DX: J90 Pleural effusion, not elsewhere classified (principal); I48.91 Unspecified atrial fibrillation

== ENCOUNTER → 2016-10-01 | Outpatient (CLI) | payer OTHER | LOC: FIMAGING 09:42 | PROVIDERS: ATTEND Thoracic Surgery (Cardiothoracic Vascular Surgery) | DX: J90 Pleural effusion, not elsewhere classified (principal) ==

== ENCOUNTER → 2016-10-03 | Outpatient (CLI) | payer OTHER | LOC: FIMAGING 13:11 | PROVIDERS: ATTEND Thoracic Surgery (Cardiothoracic Vascular Surgery) | PROC: 0W9B3ZZ Drainage of Left Pleural Cavity, Percutaneous Approach (ICD-10-PCS; principal; 2016-10-03) | DX: J90 Pleural effusion, not elsewhere classified (principal) ==

== ENCOUNTER → 2016-10-08 | Outpatient (CLI) | payer OTHER | LOC: FIMAGING 09:41 | PROVIDERS: ATTEND Thoracic Surgery (Cardiothoracic Vascular Surgery) | DX: Z09 Encounter for follow-up examination after completed treatment for conditions other than malignant neoplasm (principal); J90 Pleural effusion, not elsewhere classified; Z98.890 Other specified postprocedural states ==

== ENCOUNTER → 2016-10-21 | Outpatient (CLI) | payer OTHER | LOC: FIMAGING 09:49 | PROVIDERS: ATTEND Thoracic Surgery (Cardiothoracic Vascular Surgery) | DX: J90 Pleural effusion, not elsewhere classified (principal) ==

== ENCOUNTER → 2016-10-28 | Outpatient (CLI) | payer OTHER | LOC: FLAB 09:03 | PROVIDERS: ATTEND Thoracic Surgery (Cardiothoracic Vascular Surgery) | DX: J90 Pleural effusion, not elsewhere classified (principal) ==

== ENCOUNTER → 2017-02-12 | Outpatient (CLI) | payer OTHER | LOC: FIMAGING 14:29 | PROVIDERS: ATTEND Physician Assistant | DX: Z12.31 Encounter for screening mammogram for malignant neoplasm of breast (principal) | CPT/HCPCS: G0202 ==

== ENCOUNTER 2017-09-22 14:16 | Inpatient (IN) | payer OTHER ==
[2017-09-22] MEDS ORDERED: ONDANSETRON DISINTEGRATING 4 MG TAB PO PRN (15:21)
[2017-09-22] MEDS ORDERED: ONDANSETRON 4 MG/2 ML VIAL IVP PRN (15:21)
[2017-09-22 16:02] LABS: PLATELET COUNT 189 10^3/uL (150-400)
[2017-09-22] MEDS: D5W 1/2 NS W/ 20 KCl/L 1,000 ML IV SCH (16:25)
--- NOTE | 2017-09-22 16:41 | GHP ---
[f rep st] HISTORY AND PHYSICAL DATE OF ADMISSION: 09/22/2017 ADMITTING DIAGNOSIS: Diarrhea and weakness. HISTORY OF PRESENT ILLNESS: The patient is a 76-year-old female who presented to the office today co mplaining of diarrhea and weakness. She was seen about a week and a half ago by ENT, who started her on an oral antibiotic. She cannot remember the name of the antibiotic, but started her on antibioti c for an oral infection. She called our office last Thursday, the , complaining of increased di arrhea after starting the antibiotic and was told to stop taking the antibiotic. The diarrhea cleare d up for a couple of days, but then came back yesterday and she has been having multiple loose bowel movements over the past 2 days. She has also been experiencing some stool urgency and incontinence. Today in the office, Lesa had a low-grade fever of 100.5 degrees Fahrenheit. She was also extrem beverly fatigued after walking in from the car to the exam room and dropped her saturations to the low 80 s with ambulation. She was able to get them back up with deep breathing to the low 90s, but remained quite fatigued. She has been experiencing increased weakness and fatigue over the past week. Ameya holden's is out of town, so she is currently by herself and does not have help at home. She cristina es any shortness of breath, cough, nausea, vomiting, rashes, or known infections. She also denies an y dysuria, foul odor to her urine, or low back and flank pain. She will be admitted for workup and f urther evaluation. PAST MEDICAL HISTORY: Includes chronic atrial fibrillation. She was previously on anticoagulation, but experienced a hemorrhagic stroke last year. She is now status post left atrial appendage removal . She also has a history of amyloidosis, restless legs syndrome, and iron deficiency anemia. SOCIAL HISTORY: Former smoker, 31 pack year history. Quit in 1986. Currently . PAST SURGICAL HISTORY: Includes appendectomy in 2011, fistula, and cholecystectomy in 1996. FAMILY MEDICAL HISTORY: Father at 88 of lung cancer from asbestosis. Mother at 89 from he art failure, diabetes, CT, and she had thyroid issues. REVIEW OF SYSTEMS: GENERAL: Complains of increased fatigue and weakness, as well as fever and chills . ENT: Complains of recent dental infection. RESPIRATORY: Denies cough, wheeze, shortness of eliseo th. CARDIOVASCULAR: Denies chest pain, palpitations, dizziness, lightheadedness. GI: Denies abdom inal pain, cramping, nausea, vomiting. Complaining of persistent and worsening diarrhea as discussed in HPI. : Denies dysuria, a foul odor to urine and blood in urine. SKIN: Denies itching or ashly h. NEUROLOGIC: Denies fainting. Complains of generalized weakness. PHYSICAL EXAM: GENERAL APPEARANCE: Alert, pleasant, mildly pale. HEAD: Normocephalic, atraumatic. Eyes: EOMI. Pupils equal, round, and reactive. SKIN: Warm and dry without breakdown. HEART: I rregularly irregular rhythm with mild tachycardia, rate in the 120s. LUNGS: Clear to auscultation b ilaterally. ABDOMEN: Soft, nondistended, nontender. EXTREMITIES: No peripheral edema noted. NEUR OLOGIC: Alert, oriented. Cognitive exam grossly normal and cooperative with exam. Grossly normal. PSYCH: Mood and affect full range. ASSESSMENT AND PLAN: 1. Diarrhea. The patient recently was placed on oral antibiotics for an oral infection by ENT. It is unclear at this time what the antibiotic was, but suspect it could possibly have been clindamycin. Since then, she has been experiencing worsening diarrhea with some stool incontinence and stool urg ency. Will evaluate for C difficile and treat as appropriate. Will rehydrate with soft fluids thoug h she has had fluid overload in the recent past, so will be cautious with fluid. Will check electrol ytes on labs. 2. Weakness, likely due to diarrhea and dehydration. Will evaluate for other possible sources of in fection, including chest x-ray to rule out pneumonia. UA to rule out a UTI and blood cultures to rul e out sepsis. 3. Fever. As discussed above, rule out other sources of infection. 4. Atrial fibrillation. Will monitor rate control with rehydration, likely mildly tachycardic due t o dehydration. Currently unable to be on anticoagulation due to recent hemorrhagic stroke, but is st atus post left atrial appendage removal. 5. History of iron-deficiency anemia. Checking CBC with labs today. DISPOSITION: Will admit as observation as I anticipate less than 2 midnights, for workup, initiation of treatment. /[id number]/MODL
[2017-09-22] MEDS: GABAPENTIN 100 MG CAP PO SCH (20:45)
[2017-09-22] MEDS: ATORVASTATIN CALCIUM 20 MG TAB PO SCH (20:45)
[2017-09-22] MEDS: ACETAMINOPHEN 325 MG TAB PO PRN (20:57)
[2017-09-22] MEDS: VANCOMYCIN 125 MG/2.5 ML UDL PO SCH (22:38)
[2017-09-23] MEDS: D5W 1/2 NS W/ 20 KCl/L 1,000 ML IV SCH ×2 (05:16→17:13)
[2017-09-23] MEDS: VANCOMYCIN 125 MG/2.5 ML UDL PO SCH ×4 (05:17→21:42)
[2017-09-23] MEDS ORDERED: Herbals/Supplements -Info Only PO SCH (09:00)
--- NOTE | 2017-09-23 09:07 | SOAPPROG ---
SOAP Progress Note Assessment/Plan: Assessment: Plan: 09/23/17 09:06 c diff + after augmentin. Improving, will add cholestyramine given 1 hour after oral vancomycin rapid afib with SOB and hypoxia--improving, continue IVF anticipate d/c home tomorrow if all progresses as expected Subjective: Sofie is feeling somewhat better. She is still incontinent of stool. No fever/ chills. No blood, + mucus in stool. SOB is less. No CP Objective: Vital Signs Temp Pulse Resp BP Pulse Ox 37.3 C 101 H 16 101/65 93 09/23/17 08:00 09/23/17 08:00 09/23/17 08:00 09/23/17 08:00 09/23/17 08:00 Laboratory Results 09/22/17 15:10 09/22/17 15:10 Gen: stronger Lungs: some SOB with walking Heart: irreg irreg, rate improving Abd + bs soft NT LE's no new edema C diff pos ICD10 Worksheet Patient Problems: Problems Problem Status Onset C. difficile diarrhea Acute Coronary artery disease (CAD) excluded Acute HTN (hypertension) Chronic History of CVA with residual deficit Chronic Permanent atrial fibrillation Chronic
[2017-09-23] MEDS: PANTOPRAZOLE SODIUM 40 MG TAB PO SCH (09:42)
[2017-09-23] MEDS: GABAPENTIN 100 MG CAP PO SCH ×3 (09:42→21:42)
[2017-09-23] MEDS: OMEGA-3 FATTY ACIDS 1,000 MG CAP PO SCH (09:42)
[2017-09-23] MEDS: MULTIVITAMINS 1 EACH TAB PO SCH (09:42)
[2017-09-23] MEDS: DULoxetine 60 MG CAP PO SCH (09:42)
[2017-09-23] MEDS: ACETAMINOPHEN 325 MG TAB PO PRN ×2 (09:56→19:18)
--- NOTE | 2017-09-23 11:36 | ASMTCASEMG ---
Living Arrangements What is your living Answers: With Spouse arrangement? Who do you live with? Type Of Residence What kind of residence do Answers: House you live in? Discharge Plan Comments Coordination Status Comments Notes: Pt is a 76 y/o female admitted for diarrhea and weakness. Therapies have been ordered and awaiting recommendations. Needs are TBD at this time. CM to follow. Plan: TBD Date Signed: 09/23/2017 11:35 AM Electronically Signed By:TRINI Moralez
[2017-09-23] MEDS: CHOLESTYRAMINE/SUCROSE 4 GM PKT PO SCH ×2 (17:03→22:47)
[2017-09-23] MEDS: DIGOXIN 125 MCG TAB PO SCH (18:23)
[2017-09-23] MEDS: ATORVASTATIN CALCIUM 20 MG TAB PO SCH (21:42)
[2017-09-24] MEDS: VANCOMYCIN 125 MG/2.5 ML UDL PO SCH ×4 (06:22→21:38)
[2017-09-24] MEDS: D5W 1/2 NS W/ 20 KCl/L 1,000 ML IV SCH (07:09)
--- NOTE | 2017-09-24 09:01 | SOAPPROG ---
SOAP Progress Note Assessment/Plan: Assessment: Plan: 09/23/17 09:06 c diff + after augmentin. Improving, will add cholestyramine given 1 hour after oral vancomycin rapid afib with SOB and hypoxia--improving, continue IVF anticipate d/c home tomorrow if all progresses as expected 09/24/17 09:00 dehydration--improved, will hep lock IV a fib--rate control improved weakness, inability to take care of self. She is making progress but is not safe for home yet. Discussed adding private pay help with [facility] [facility]. Recommended [id number]. anticipate d/c home tomorrow if progress continues Subjective: The patient has had less diarrhea and less stool incontinence than the prior day. She is still quite weak and can't manage herself. No SOB, No CP. Appetite is diminished. Objective: Vital Signs Temp Pulse Resp BP Pulse Ox 36.3 C 81 18 116/60 91 L 09/24/17 08:49 09/24/17 08:49 09/24/17 08:49 09/24/17 08:49 09/24/17 08:49 Microbiology 09/22/17 16:30 Blood Panel (PCR) - Final Blood No Organism Detected Laboratory Results 09/22/17 15:10 09/22/17 15:10 09/23/17 09/24/17 09/25/17 05:59 05:59 05:59 Intake Total 2040 150 Output Total 500 Balance 2040 -350 Gen: tired, but improving Lungs: CTAB Heart: irreg irreg with rate control room sat 91% after walking to restroom on room air this am Abd + bs soft NT, ND LE's trace edema ICD10 Worksheet Patient Problems: Problems Problem Status Onset C. difficile diarrhea Acute Coronary artery disease (CAD) excluded Acute HTN (hypertension) Chronic History of CVA with residual deficit Chronic Permanent atrial fibrillation Chronic
[2017-09-24] MEDS: OMEGA-3 FATTY ACIDS 1,000 MG CAP PO SCH (09:11)
[2017-09-24] MEDS: GABAPENTIN 100 MG CAP PO SCH ×3 (09:12→21:38)
[2017-09-24] MEDS: DULoxetine 60 MG CAP PO SCH (09:12)
[2017-09-24] MEDS: MULTIVITAMINS 1 EACH TAB PO SCH (09:12)
[2017-09-24] MEDS: PANTOPRAZOLE SODIUM 40 MG TAB PO SCH (09:13)
[2017-09-24] MEDS: CHOLESTYRAMINE/SUCROSE 4 GM PKT PO SCH ×3 (11:23→21:38)
--- NOTE | 2017-09-24 12:26 | ASMTCMCOM ---
CM Note CM Note Notes: Spoke w/pt and [facility] regarding dc options. PT/OT recommending SNF, pt does not want to go, was at for several weeks following a stroke. She prefers to dc home w/homecare and overnight private pay caregiver. Dtr Billie will arrange private caregiver and let CM know who they want for home care. Pt will likely discharge Thursday. DC Plan: Home care + Private Pay Date Signed: 09/24/2017 12:26 PM Electronically Signed By:Meagan Ponce RN
[2017-09-24] MEDS: ACETAMINOPHEN 325 MG TAB PO PRN ×2 (14:43→21:38)
--- NOTE | 2017-09-24 15:13 | PDMN ---
Medical Necessity Medical necessity: Change to IP, as of 09/24/17, per PA & MCG; los >2 mn for ongoing management of severe diarrhea w/C-diff, weakness & inability to take care of self; admit for further monitoring, abx, therapies & dc planning
[2017-09-24] MEDS: DIGOXIN 125 MCG TAB PO SCH (17:30)
[2017-09-24] MEDS: ATORVASTATIN CALCIUM 20 MG TAB PO SCH (21:38)
[2017-09-25] MEDS: VANCOMYCIN 125 MG/2.5 ML UDL PO SCH (05:23)
[2017-09-25 08:01] VITALS: BP 119/59
--- NOTE | 2017-09-25 08:56 | SOAPPROG ---
SOAP Progress Note Assessment/Plan: Assessment: Plan: 09/23/17 09:06 c diff + after augmentin. Improving, will add cholestyramine given 1 hour after oral vancomycin rapid afib with SOB and hypoxia--improving, continue IVF anticipate d/c home tomorrow if all progresses as expected 09/24/17 09:00 dehydration--improved, will hep lock IV a fib--rate control improved weakness, inability to take care of self. She is making progress but is not safe for home yet. Discussed adding private pay help with [facility]. Recommended [id number]. anticipate d/c home tomorrow if progress continues 09/25/17 08:55 c diff, diarrhea continues, but she has control at this point. [facility] is on line for help at home. Discussed finding oral vanco challenge with [facility] and pharmacist. a fib stable weakness--will need support home Subjective: Feeling ok, eating better, some abdominal cramps Objective: Vital Signs Temp Pulse Resp BP Pulse Ox 36.5 C 70 16 119/59 L 97 09/25/17 08:00 09/25/17 08:00 09/25/17 08:00 09/25/17 08:00 09/25/17 08:00 Microbiology 09/22/17 16:30 Blood Panel (PCR) - Final Blood No Organism Detected Laboratory Results 09/22/17 15:10 09/22/17 15:10 09/24/17 09/25/17 09/26/17 05:59 05:59 05:59 Intake Total 2040 450 Output Total 1100 Balance 2040 -650 Gen: NAD Lungs: CTAB Heart: irreg irreg Abd + bs, soft, some TTP mild LE edema ICD10 Worksheet Patient Problems: Problems Problem Status Onset C. difficile diarrhea Acute Coronary artery disease (CAD) excluded Acute HTN (hypertension) Chronic History of CVA with residual deficit Chronic Permanent atrial fibrillation Chronic
--- NOTE | 2017-09-25 09:00 | PDIAF ---
- Diagnosis Diagnosis: c diff, weakness, a fib Code Status: Full Code - Medication Management Discharge Medications: Medications to Continue on Transfer Acetaminophen [Tylenol ES 500 mg (*)] 1,000 mg PO Q8H 09/22/17 [Last Taken 09/22] Ascorbic Acid [Vitamin C 500 mg (*)] 500 mg PO DAILY 09/22/17 [Last Taken ] Atorvastatin Calcium [Lipitor 20 mg (*)] 20 mg PO HS 09/22/17 [Last Taken ] C,E,Zinc,Copper 11/Wcxan7i/Lut [Ocuvite Adult 50 Plus Softgel] 1 each PO DAILY 09/22/17 [Last Taken 09/22/17] DULoxetine [Cymbalta 60 MG (*)] 120 mg PO DAILY 09/22/17 [Last Taken 09/21/17] Digoxin [Lanoxin 0.125 mg] 0.125 mg PO DAILY@18 09/22/17 [Last Taken 09/21/17] Ergocalciferol [Vitamin D2 (*)] 50,000 unit PO MO 09/22/17 [Last Taken 09/14/17] Gabapentin [Neurontin 100 MG (*)] 400 mg PO BID@09,1530 09/22/17 [Last Taken ] Gabapentin [Neurontin 100 MG (*)] 500 mg PO HS 09/22/17 [Last Taken 09/22/17] Herbals/Supplements -Info Only 1 ea PO DAILY 09/22/17 [Last Taken 09/22/17] Multivitamins [Multivitamin (*)] 1 each PO DAILY 09/22/17 [Last Taken 09/22/17] [place]-3 Fatty Acids [Fish Oil 1000 mg (*)] 1,000 mg PO DAILY 09/22/17 [Last Taken Unknown] Omeprazole 20 mg PO DAILY 09/22/17 [Last Taken 09/21/17] celeCOXIB [CeleBREX] 100 mg PO DAILY 09/22/17 [Last Taken 09/22/17] Acetaminophen [Tylenol 325mg (*)] 650 mg PO Q4HRS PRN tab 09/25/17 [Last Taken Unknown] Cholestyramine/Sucrose [Questran] 4 gm PO TID #90 pkt 09/25/17 [Last Taken Unknown] Vancomycin [Vancocin Oral Liquid] 125 mg PO QID #40 udl 09/25/17 [Last Taken Unknown] Intermediate Antibiotics: oral vanco 125 ml po QID x 10 days Discharge Medications: Refer to the Discharge Home Medication list for PRN reason. PICC Care - Routine: N/A - Orders Services needed: Home Care, Physical Therapy, Occupational Therapy Home Care Face to Face: I certify that this patient was under my care and that I had the required [id number] encounter meeting the encounter requirements on the discharge day. My findings support the fact that the patient is homebound as defined in Home Care Face to Face Continued: CMS Chapter 7 Medicare Benefits Manual 30.1.1 , The condition of the patient is such that there exists a normal inability to leave home and consequently, leaving home would require a considerable and taxing effort. Isolation Type: Contact Isolation Diet Recommendation: no restrictions on diet Diet Texture: Regular Texture Diet Das: No - Follow Up Care Current Providers and Referrals: Ish Flores PA [Primary Care Provider] -
[2017-09-25] MEDS: DULoxetine 60 MG CAP PO SCH (09:18)
[2017-09-25] MEDS: ACETAMINOPHEN 325 MG TAB PO PRN (09:19)
[2017-09-25] MEDS: PANTOPRAZOLE SODIUM 40 MG TAB PO SCH (09:19)
[2017-09-25] MEDS: OMEGA-3 FATTY ACIDS 1,000 MG CAP PO SCH (09:19)
[2017-09-25] MEDS: GABAPENTIN 100 MG CAP PO SCH (09:20)
[2017-09-25] MEDS: MULTIVITAMINS 1 EACH TAB PO SCH (09:20)
--- NOTE | 2017-09-25 09:50 | GDS ---
[f rep st] DISCHARGE SUMMARY DISPOSITION: Discharged to home with home care, 09/25/2017. REASON FOR ADMISSION: Suspected C diff with uncontrollable diarrhea, dehydration, and rapid atrial f ibrillation. DISCHARGE DIAGNOSES: 1. Confirmed Clostridium difficile with improvement on oral vancomycin and cholestyramine. 2. Dehydration, improved after intravenous fluids. 3. Rapid atrial fibrillation. This has normalized to atrial fibrillation with controlled rate after hydration. HOSPITAL COURSE: Patient was admitted from the office to the hospital given rapid atrial fibrillatio n, dehydration, and uncontrollable diarrhea. She was found to have C diff as suspected. She was sta rted on oral vancomycin in conjunction with cholestyramine. She has had improvement in control of he r diarrhea. She still has loose stools, but no blood, mucus, or incontinence. Her baseline physical ity is fairly weak. Given challenges with going to the restroom frequently, she was kept a bit longe r in the hospital. She was discharged to home with home care and some support from [facility]. He r daughter has been integral in helping facilitate these pieces to her puzzle, will work on making raymundo re she has oral vancomycin continued so as to not break continuity in therapy. Continue cholestyrami ne. Will resume her normal home medications. She will have office followup in the next week. /[id number]/MODL
--- NOTE | 2017-09-25 10:01 | ASMTLACE ---
LACE Length of stay for Answers: 3 days current admission Acuity / Level of Answers: Yes Care: Did the patient have an inpatient admission? Comorbidities - select Answers: Cerebrovascular disease all that apply (CVA, TIA, aneurysms, vasc ular dementia) Other Notes: AFib # of Emergency department Answers: 0 visits in the last 6 months Score: 8 Date Signed: 09/25/2017 10:00 AM Electronically Signed By:Meagan Ponce RN
[2017-09-25] MEDS: CHOLESTYRAMINE/SUCROSE 4 GM PKT PO SCH (10:36)
[2017-09-28] MEDS ORDERED: ERGOCALCIFEROL 50,000 I.UNIT CAP PO SCH ×2 (19:38→19:46)
== END 2017-09-25 12:05 | disposition home health service (06) | DRG 373 ==
LOC: F3E 15:10 → OBSVTOIN 09-24 11:11
PROVIDERS: ADMIT Internal Medicine; ATTEND Internal Medicine
DX: A04.72 Enterocolitis due to Clostridium difficile, not specified as recurrent (principal); T36.0X5A Adverse effect of penicillins, initial encounter; E86.0 Dehydration; I48.2 Chronic atrial fibrillation; Z86.73 Personal history of transient ischemic attack (TIA), and cerebral infarction without residual deficits; Z87.891 Personal history of nicotine dependence
CPT/HCPCS: 97116-GP; 97162-GP; 97166-GO; 97530-GP; 97535-GO; G0378; G8978-GP-CK; G8979-GP-CI; G8987-GO-CJ; G8988-GO-CI

== ENCOUNTER 2018-07-07 09:56 | Day surgery (SDC) | payer OTHER ==
--- NOTE | 2018-07-07 06:16 | PDHPUP ---
History & Physical Update H&P update statement: This history and physical update is based on an assessment of the patient which was completed after admission or registration (within 24 hours), but prior to the surgery/procedure. H&P update: H&P reviewed & patient examined, no change in patient's condition since H&P completed, changes noted H&P changes: Pt positioned on table prior to surgery. found to have open wound on abdominal skin crease. had to cancel surgery
[~2018-07-07 09:56] MED LIST changes: -LIDOCAINE 1% 300 MG/30 ML SDV ONE; +ROPIVACAINE 0.2% 80 MG, EPINEPHrine 0.2 MG, KETOROLAC TROMETHAMINE 30 MG in SYRINGE 0 ML IU ONE; +TRANEXAMIC ACID 3,000 MG in NS (SYRINGE) 50 ML IRR ONE; +TRANEXAMIC ACID 3,000 MG/50 ML BAG IRR ONE
[2018-07-07] MEDS ORDERED: ACETAMINOPHEN 325 MG TAB PO ONE (10:11)
[2018-07-07] MEDS ORDERED: FAMOTIDINE 20 MG TAB PO ONE (10:11)
[2018-07-07] MEDS ORDERED: ceFAZolin 2 GM/DEXTROSE 100 ML IV ONE (10:11)
[2018-07-07] MEDS ORDERED: DEXAMETHASONE 4 MG/ML VIAL IVP ONE (10:11)
[2018-07-07] MEDS ORDERED: LR 1,000 ML IV ONE (10:12)
[2018-07-07] MEDS ORDERED: MIDAZOLAM 2 MG/2 ML VIAL ONE (11:42)
[2018-07-07] MEDS ORDERED: MIDAZOLAM 2 MG/2 ML VIAL IVP ONE (11:43)
[2018-07-07] MEDS ORDERED: ACETAMINOPHEN 500 MG TAB PO PRN (11:45)
[2018-07-07] MEDS ORDERED: PROMETHAZINE HCL 25 MG/ML INJ IVP PRN (11:45)
[2018-07-07] MEDS ORDERED: ONDANSETRON 4 MG/2 ML VIAL IVP PRN (11:45)
[2018-07-07] MEDS ORDERED: NALOXONE HCL 0.4 MG/ML INJ IVP PRN (11:45)
[2018-07-07] MEDS ORDERED: fentaNYL 100 MCG/2 ML INJ IVP PRN (11:45)
[2018-07-07] MEDS ORDERED: LR 500 ML IV PRN (11:45)
--- NOTE | 2018-07-07 11:45 | PDANEPAE ---
ANE Past Medical History - Cardiovascular History Hx Hypertension: No Hx Arrhythmias: Yes Hx Chest Pain: No Hx Coronary Artery / Peripheral Vascular Disease: Yes Hx CHF / Valvular Disease: No Hx Palpitations: No Cardiovascular History Comment: afib - stopped coumadin after. stroke 04/2016. elev cholesterol. no a-fib episodes since procedure. followed by kirk holliday pcp - Pulmonary History Hx COPD: No Hx Asthma/Reactive Airway Disease: No Hx Recent Upper Respiratory Infection: No Hx Oxygen in Use at Home: Yes Hx Sleep Apnea: Yes Sleep Apnea Screening Result - Last Documented: Positive Pulmonary History Comment: wild positive uses o2 NOC - Neurologic History Hx Cerebrovascular Accident: Yes Hx Seizures: No Hx Dementia: No Neurologic History Comment: cva 04/2016. - Endocrine History Hx Diabetes: No Obesity: moderate - Renal History Hx Renal Disorders: No - Liver History Hx Hepatic Disorders: No - Neurological & Psychiatric Hx Hx Neurological and Psychiatric Disorders: Yes Neurological / Psychiatric History Comment: depression up and down since stroke in apr 2016 - Cancer History Hx Cancer: No - Congenital Disorder History Hx Congenital Disorders: No - GI History GERD: no Hx Gastrointestinal Disorders: Yes Gastrointestinal History Comment: occ reflux - Other Health History Other Health History: wears reading glasses d/t macular degeneration. wears bilateral hearing aid - Chronic Pain History Chronic Pain: Yes (right hip & SCIATICA) - Surgical History Prior Surgeries: cath 09/11/16. MARTI CLOSURE w/clip 08/2016. appy. thai. fistula. right shoulder surgery ANE Review of Systems Review of Systems: - Exercise capacity METS (RN): 4 METS ANE Patient History - Allergies Allergies/Adverse Reactions: oxycodone [From OxyContin] Allergy (Verified 06/30/18 11:06) nausea & diarrhea - Home Medications Home medications: home medication list seen and reviewed Home Medications: Acetaminophen [Tylenol ES 500 mg (*)] 1,000 mg PO TID 11/05/17 [Last Taken 07/07 08:30] Ascorbic Acid [Vitamin C 500 mg (*)] 500 mg PO DAILY 11/05/17 [Last Taken ] Atorvastatin Calcium [Lipitor 20 mg (*)] 20 mg PO DAILY18 11/05/17 [Last Taken 07/06/18] C/E/Zn/Cu/OM3/DHA/EPA/LUT/ZEAX [Preservision Areds 2 Softgel] 1 each PO DAILY [Last Taken 1 Week Ago ~06/30/18] Calcium Carbonate [Oyster Shell Calcium 500 mg (*)] 500 mg PO TID 11/05/17 [ Last Taken 1 Week Ago ~06/30/18] DULoxetine [Cymbalta 60 MG (*)] 60 mg PO BID 11/05/17 [Last Taken 07/06/18] Digoxin [Lanoxin 125 mcg (RX)] 125 mcg PO DAILY18 11/05/17 [Last Taken 07/06/18] Multivitamins [Multivitamin (*)] 1 each PO DAILY 11/05/17 [Last Taken 1 Week Ago ~06/30/18] [place]-3 Fatty Acids [Fish Oil 1000 mg (*)] 2,000 mg PO DAILY 11/05/17 [Last Taken 1 Week Ago ~06/30/18] Omeprazole 20 mg PO DAILY 11/05/17 [Last Taken 07/06/18] Vitamin B Complex [Vitamin B Complex (OTC)] 1 each PO BID 11/05/17 [Last Taken 1 Week Ago ~06/30/18] Gabapentin [Neurontin 300 MG (*)] 300 mg PO DAILY14 06/28/18 [Last Taken 08:30] Glucosamine Sulfate [Glucosamine Sulfate 500 MG (*)] 500 mg PO TID 06/28/18 [ Last Taken 1 Week Ago ~06/30/18] Herbals/Supplements -Info Only 1 ea PO DAILY 06/28/18 [Last Taken 1 Week Ago ~] celeCOXIB [Celebrex (*)] 400 mg PO DAILY18 06/28/18 [Last Taken 07/06/18] - NPO status NPO Status: no food or drink >8 hours NPO Since - Liquids (Date): 07/07/18 NPO Since - Liquids (Time): 08:30 NPO Since - Solids (Date): 07/06/18 NPO Since - Solids (Time): 18:00 - Anes Hx Anes Hx: no prior problems - Smoking Hx Smoking Status: Former smoker - Family Anes Hx Family Hx Anesthesia Complications: none ANE Labs/Vital Signs - Vital Signs Blood Pressure: 153/61 Heart Rate: 70 Respiratory Rate: 18 O2 Sat (%): 91 Height: 167.64 cm Weight: 106.594 kg ANE Physical Exam - Airway Neck exam: FROM Mallampati Score: Class 3 Mouth exam: normal dental/mouth exam - Pulmonary Pulmonary: no respiratory distress, no rales or rhonchi, clear to auscultation - Cardiovascular Cardiovascular: irregularly irregular - ASA Status ASA Status: III ANE Anesthesia Plan Anesthesia Plan: spinal
[2018-07-07] MEDS ORDERED: PROPOFOL 200 MG/20 ML VIAL ONE (11:55)
[2018-07-07] MEDS ORDERED: DEXAMETHASONE 4 MG/ML VIAL ONE ×2 (11:56)
[2018-07-07] MEDS ORDERED: BUPIVACAINE/DEXTROSE 7.5MG/ML 2 ML SPINAL AMP SP ONE (11:57)
--- NOTE | 2018-07-07 12:36 | POSTANESTH ---
Post Anesthetic Evaluation Cardiovascular Status: Normal, Stable, Similar to Pre-Op Cond Respiratory Status: Normal, Stable, Similar to Pre-op Cond. Level of Consciousness/Mental Status: Can Participate in Eval, Mildly Sleepy, Arousable Pain Control: Adequate, Prn Tx Ordered (Surgery cancelled by surgeon after spinal block placed, due to skin eruption over incision area.) Nausea/Vomiting Control: Adequate, Prn Tx Ordered Complications Possibly Related to Anesthesia: None Noted
[2018-07-07 16:36] VITALS: BP 158/76
== END 2018-07-07 16:25 | disposition home or self-care (01) ==
LOC: UNDOADMIN 09:56 → FSGY 09:56 → F3N 09:56 → EDSTATUS 12:00 → FSGY 16:25 → UNDODISIN 16:25
PROVIDERS: ATTEND Orthopaedic Surgery
DX: M16.11 Unilateral primary osteoarthritis, right hip (principal); L98.9 Disorder of the skin and subcutaneous tissue, unspecified; Z53.09 Procedure and treatment not carried out because of other contraindication
CPT/HCPCS: J0171; J0690; J1100; J1885; J2250; J2704; J2795

== ENCOUNTER 2018-07-27 07:28 | Inpatient (IN) | payer OTHER ==
[~2018-07-27 07:28] MED LIST changes: +POVIDONE-IODINE 20 ML in SODIUM CL IRRIG SOLUTION 500 ML IRR ONE; +TRANEXAMIC ACID 2,000 MG in NS 100 ML IV ONE; -TRANEXAMIC ACID 3,000 MG/50 ML BAG IRR ONE
[2018-07-27] MEDS ORDERED: FAMOTIDINE 20 MG TAB PO ONE (07:42)
[2018-07-27] MEDS ORDERED: GABAPENTIN 300 MG CAP PO ONE (07:42)
[2018-07-27] MEDS ORDERED: ONDANSETRON 4 MG/2 ML VIAL IVP ONE (07:42)
[2018-07-27] MEDS ORDERED: ACETAMINOPHEN 325 MG TAB PO ONE (07:42)
[2018-07-27] MEDS ORDERED: DEXAMETHASONE 4 MG/ML VIAL IVP ONE (07:42)
[2018-07-27] MEDS ORDERED: ceFAZolin 2 GM/DEXTROSE 100 ML IV ONE (07:42)
[2018-07-27] MEDS ORDERED: LR 1,000 ML IV ONE (07:43)
[2018-07-27] MEDS ORDERED: ceFAZolin 1 GM/5 ML SYR ONE (07:48)
[2018-07-27] MEDS ORDERED: TRANEXAMIC ACID 3,000 MG/50 ML BAG IRR ONE (07:48)
[2018-07-27] MEDS ORDERED: LIDOCAINE 2% 5 ML SDV ONE (09:59)
[2018-07-27] MEDS ORDERED: fentaNYL 100 MCG/2 ML INJ ONE (10:00)
[2018-07-27] MEDS ORDERED: PROPOFOL/EMULSION 500 MG/50 ML BOTTLE IV ONE ×2 (10:00)
[2018-07-27] MEDS ORDERED: fentaNYL 100 MCG/2 ML INJ IVP PRN (11:44)
[2018-07-27] MEDS ORDERED: PROMETHAZINE HCL 25 MG/ML INJ IVP PRN ×2 (11:44→12:14)
[2018-07-27] MEDS ORDERED: ALBUTEROL 3 ML DEYVIAL IH PRN (11:44)
[2018-07-27] MEDS ORDERED: NALOXONE HCL 0.4 MG/ML INJ IVP PRN (11:44)
[2018-07-27] MEDS ORDERED: HYDROCODONE/APAP 5/325 TAB PO PRN ×2 (11:44→15:31)
[2018-07-27] MEDS ORDERED: traMADol 50 MG TAB PO PRN (12:14)
[2018-07-27] MEDS ORDERED: DIPHENOXYLATE/ATROPINE LOMOTIL 1 TAB PO PRN (12:14)
[2018-07-27] MEDS ORDERED: MAGNESIUM HYDROXIDE 30 ML UDCUP PO PRN (12:14)
[2018-07-27] MEDS ORDERED: BISACODYL 10 MG SUPP PR PRN (12:14)
[2018-07-27] MEDS ORDERED: CYCLOBENZAPRINE 10 MG TAB PO PRN (12:14)
[2018-07-27] MEDS ORDERED: PROMETHAZINE HCL 25 MG SUPPR PR PRN (12:14)
[2018-07-27] MEDS ORDERED: NS 500 ML IV PRN (12:14)
[2018-07-27] MEDS ORDERED: ONDANSETRON 4 MG/2 ML VIAL IVP PRN (12:14)
[2018-07-27] MEDS ORDERED: diphenhydrAMINE 25 MG CAP PO PRN (12:14)
[2018-07-27] MEDS ORDERED: POLYETHYLENE GLYCOL 3350 17 GM PKT PO PRN (12:14)
[2018-07-27] MEDS ORDERED: ONDANSETRON DISINTEGRATING 4 MG TAB PO PRN (12:14)
[2018-07-27] MEDS ORDERED: TEMAZEPAM 15 MG CAP PO PRN (12:14)
[2018-07-27] MEDS ORDERED: LACTULOSE 20 GM/30 ML UDCUP PO PRN (12:14)
[2018-07-27] MEDS ORDERED: oxyCODONE IR 5 MG TAB PO PRN (12:14)
[2018-07-27] MEDS ORDERED: LR 1,000 ML IV SCH (12:30)
[2018-07-27] MEDS: GABAPENTIN 300 MG CAP PO SCH (14:37)
[2018-07-27] MEDS ORDERED: ATORVASTATIN CALCIUM 20 MG TAB PO SCH (18:00)
[2018-07-27] MEDS ORDERED: DIGOXIN 125 MCG TAB PO SCH (18:00)
[2018-07-27] MEDS: ACETAMINOPHEN 325 MG TAB PO SCH ×2 (18:33→23:59)
[2018-07-27] MEDS: ceFAZolin 2 GM/DEXTROSE 100 ML IV SCH (18:33)
[2018-07-27] MEDS: KETOROLAC 15 MG/1 ML SDV IVP SCH (18:34)
[2018-07-27] MEDS: ASPIRIN 325 MG TAB PO SCH (20:39)
[2018-07-27] MEDS: FAMOTIDINE 20 MG TAB PO SCH (20:39)
[2018-07-27] MEDS: SENNOSIDES/DOCUSATE SODIUM TAB PO SCH (20:39)
[2018-07-27] MEDS: DULoxetine 60 MG CAP PO SCH (20:39)
[2018-07-28] MEDS: ceFAZolin 2 GM/DEXTROSE 100 ML IV SCH (03:03)
[2018-07-28] MEDS: KETOROLAC 15 MG/1 ML SDV IVP SCH ×4 (06:22→14:25)
[2018-07-28] MEDS: ACETAMINOPHEN 325 MG TAB PO SCH ×2 (06:23→12:52)
[2018-07-28] MEDS ORDERED: FERROUS SULFATE 325 MG TAB PO SCH (08:00)
[2018-07-28] MEDS ORDERED: PANTOPRAZOLE SODIUM 40 MG TAB PO SCH (09:00)
[2018-07-28] MEDS ORDERED: PRESERVISION AREDS2 FORMULA EYE VIT 1 EACH PO SCH (09:00)
[2018-07-28] MEDS: DULoxetine 60 MG CAP PO SCH (09:26)
[2018-07-28] MEDS: FAMOTIDINE 20 MG TAB PO SCH (09:26)
[2018-07-28] MEDS: ASPIRIN 325 MG TAB PO SCH (09:26)
[2018-07-28] MEDS: SENNOSIDES/DOCUSATE SODIUM TAB PO SCH (09:26)
[2018-07-28] MEDS ORDERED: BUPIVACAINE 0.5% 30 ML SDV ONE (12:49)
[2018-07-28] MEDS: GABAPENTIN 300 MG CAP PO SCH (14:41)
[2018-07-28] MEDS ORDERED: GABAPENTIN 300 MG CAP PO SCH (18:00)
== END 2018-07-28 16:10 | disposition home health service (06) | DRG 470 ==
DX: M16.11 Unilateral primary osteoarthritis, right hip (principal); I69.354 Hemiplegia and hemiparesis following cerebral infarction affecting left non-dominant side; I48.2 Chronic atrial fibrillation; E78.00 Pure hypercholesterolemia, unspecified; G47.33 Obstructive sleep apnea (adult) (pediatric); G89.29 Other chronic pain; E66.9 Obesity, unspecified; Z98.49 Cataract extraction status, unspecified eye